=== PATIENT | female | born 1945 | race Caucasian/White ===

== ENCOUNTER → 2016-11-20 | Outpatient (CLI) | payer MEDICARE, OTHER ==
[~2016-11-20] MED LIST: CHOL20002 PO; CLOB15CR19 TP; ECON15CR TP; FOLI0.4T2 PO; FURO-93 PO; LISI-167 PO; METH2.5T PO; MULT-257 PO; NAPR500T3 PO; OMEP-110 PO; ONDA4TAB10 PO; SUCR1ORA11 PO; SUCR1TAB PO; TRAM50TA2 PO; TRIA15OI10 TP
== END | disposition home or self-care (01) ==
LOC: CARD 09:47
PROVIDERS: ATTEND Genetic Counselor, MS
DX: Z01.810 Encounter for preprocedural cardiovascular examination (principal); R06.00 Dyspnea, unspecified; R53.83 Other fatigue; E11.65 Type 2 diabetes mellitus with hyperglycemia
CPT/HCPCS: 93017

== ENCOUNTER 2017-04-29 10:38 | Day surgery (SDC) | payer MEDICARE, OTHER ==
[2017-04-28 13:20] VITALS: BP 130/54
[2017-04-28 13:56] LABS: HEMOGLOBIN 12.7 g/dL (11.7-16.4)
[2017-04-28 14:10] LABS: ASPARTATE AMINO TRANSFERASE 18 U/L (15-37); BLOOD UREA NITROGEN 12 mg/dL (7-18)
[~2017-04-29] VITALS: Ht 160 cm; Wt 86.4 kg
[2017-04-29] MEDS ORDERED: SODIUM CHLORIDE 0.9% 1,000 ML IV SCH ×2 (11:05→12:14)
[2017-04-29] MEDS ORDERED: BISACODYL 10 MG SUPP PR PRN (11:30)
[2017-04-29] MEDS ORDERED: BISACODYL 5 MG EC TABLET PO PRN (11:30)
[2017-04-29] MEDS ORDERED: ASPIRIN 325 MG TABLET EC PO ONE (11:30)
[2017-04-29] MEDS ORDERED: ONDANSETRON 2MG/ML, 2ML IVPush PRN ×2 (11:30→13:30)
[2017-04-29] MEDS ORDERED: ACETAMINOPHEN 325 MG TABLET PO PRN (11:30)
[2017-04-29] MEDS ORDERED: FERR500P8 PO (11:31)
[2017-04-29] MEDS ORDERED: FURO20TA3 PO (11:31)
[2017-04-29] MEDS ORDERED: FLUC50TA3 PO (11:31)
[2017-04-29] MEDS ORDERED: MAGN400T36 PO (11:31)
[2017-04-29] MEDS ORDERED: ASPI-496 PO (11:31)
[2017-04-29] MEDS ORDERED: LORA10TA62 PO (11:31)
[2017-04-29] MEDS ORDERED: MIDAZOLAM 1 MG/ML, 5ML ONE (11:31)
[2017-04-29] MEDS ORDERED: ZINC30TA PO (11:31)
[2017-04-29] MEDS ORDERED: FENTANYL PF 100 MCG/2ML ONE (11:31)
[2017-04-29] MEDS ORDERED: METH2.5T PO (11:31)
[2017-04-29] MEDS ORDERED: GLIP5TAB10 PO (11:31)
[2017-04-29] MEDS ORDERED: VERAPAMIL 2.5 MG/ML, 2ML ONE (11:32)
[2017-04-29] MEDS ORDERED: CHOL100012 PO (11:32)
[2017-04-29] MEDS ORDERED: BIVALIRUDIN 250 MG ONE (11:32)
[2017-04-29] MEDS ORDERED: CALC-525 PO (11:32)
[2017-04-29] MEDS ORDERED: HEPARIN 1,000 UNITS/ML, 10ML ONE (11:32)
[2017-04-29] MEDS ORDERED: LIDOCAINE 2%, 20ML ONE (11:32)
[2017-04-29] MEDS ORDERED: CALC-598 PO (11:32)
[2017-04-29] MEDS ORDERED: [UNRECOGNIZED DRUG - OTHER] PO (11:32)
[2017-04-29] MEDS ORDERED: FOLI0.8C PO (11:32)
[2017-04-29] MEDS ORDERED: NITROGLYCERIN 5 MG/ML, 10ML ONE (11:32)
[2017-04-29] MEDS ORDERED: ASCO250T2 PO (11:32)
[2017-04-29] MEDS ORDERED: TICAGRELOR 90 MG TABLET ONE (11:32)
[2017-04-29] MEDS ORDERED: ONDANSETRON 2MG/ML, 2ML ONE (13:17)
[2017-04-29] MEDS ORDERED: ZOLPIDEM 5MG TABLET PO PRN (21:00)
== END 2017-04-29 14:32 ==
LOC: CACL 10:38
PROVIDERS: ATTEND Internal Medicine Cardiovascular Disease
DX: Z09 Encounter for follow-up examination after completed treatment for conditions other than malignant neoplasm (principal); M06.9 Rheumatoid arthritis, unspecified; Z88.0 Allergy status to penicillin; Z88.1 Allergy status to other antibiotic agents; Z88.6 Allergy status to analgesic agent
CPT/HCPCS: 36415; 71020; 80053; 82962; 85025; 93458; 99156; C1769; C1894; J1644; J2250; J2405; J3010; J3490; Q9967; J0583

== ENCOUNTER 2018-02-10 14:23 | Inpatient (IN) | payer MEDICARE, OTHER ==
[~2018-02-10] VITALS: Ht 160 cm; Wt 91.4 kg
[~2018-02-10 14:23] MED LIST changes: +ASCO250T2 PO; +ASPI-496 PO; +CALC-525 PO; +CALC-598 PO; +CHOL100012 PO; +FERR500P8 PO; +FLUC50TA3 PO; +FOLI0.8C PO; +FURO20TA3 PO; +GLIP5TAB10 PO; +LORA10TA62 PO; +MAGN400T36 PO; +NAPR-685 PO; -NAPR500T3 PO; +ZINC30TA PO; +[UNRECOGNIZED DRUG - OTHER] PO
[2018-02-10] MEDS ORDERED: PLEASE ENTER HEIGHT AND WEIGHT MC SCH (15:00)
[2018-02-10] MEDS ORDERED: PANTOPRAZOLE 40 MG IV ONE (15:03)
[2018-02-10 15:17] LABS: BASOPHILS # (AUTO) 0.04 x10^3/uL (0-0.1); BASOPHILS % (AUTO) 0 % (0-1); EOSINOPHILS # (AUTO) 0.01 x10^3/uL (0-0.4); EOSINOPHILS % (AUTO) 0 % (1-7); LYMPHOCYTES # (AUTO) 1.03 x10^3/uL (1-3.4); LYMPHOCYTES % (AUTO) 9 % (22-44); MD NO; MEAN CORPUSCULAR HEMOGLOBIN 31.1 pg (27.0-34.8); MEAN CORPUSCULAR HGB CONC 33.5 g/dL (32.4-35.8); MEAN CORPUSCULAR VOLUME 92.9 fL (80-100); MEAN PLATELET VOLUME 9.9 fL (7.4-10.4); MONOCYTES # (AUTO) 0.41 x10^3/uL (0.2-0.8); MONOCYTES % (AUTO) 4 % (2-9); NEUTROPHILS # (AUTO) 9.87 x10^3/uL (1.8-6.8); NEUTROPHILS % (AUTO) 87 % (42-75); PLATELET COUNT 336 x10^3/uL (130-400); RED BLOOD COUNT 4.15 x10^6/uL (3.82-5.3); RED CELL DISTRIBUTION WIDTH 14.4 % (9.6-15.2)
[2018-02-10 15:25] LABS: ALANINE AMINOTRANSFERASE 22 U/L (12-78); ALBUMIN 3.1 g/dL (3.4-5.0); ANION GAP 9 mmol/L (5-15); CALCIUM 9.4 mg/dL (8.5-10.1); CHLORIDE 100 mmol/L (98-107); CREATININE 0.91 mg/dL (0.55-1.02)
[2018-02-10 15:28] LABS: ALKALINE PHOSPHATASE 110 U/L (45-117); BILIRUBIN,TOTAL 0.5 mg/dL (0.2-1.0); TOTAL PROTEIN 7.5 g/dL (6.4-8.2)
[2018-02-10] MEDS ORDERED: FERROUS SULFATE (16:04)
[2018-02-10] MEDS ORDERED: LORATADINE (16:05)
[2018-02-10] MEDS ORDERED: CARAFATE (16:05)
[2018-02-10] MEDS ORDERED: MORPHINE SULFATE 4 MG/ML, 1ML IVPush PRN (16:30)
[2018-02-10] MEDS: INSULIN LISPRO 100 UNITS/ML, PEN SQ-INSULIN SCH ×2 (16:30→21:00)
[2018-02-10] MEDS ORDERED: ONDANSETRON ODT 4 MG PO PRN (16:30)
[2018-02-10] MEDS ORDERED: MAALOX/HYOSCYAMINE/LIDOCAINE 45 ML BTL PO PRN (16:30)
[2018-02-10] MEDS ORDERED: ONDANSETRON 2MG/ML, 2ML IVPush ONE (16:30)
[2018-02-10] MEDS ORDERED: ONDANSETRON 2MG/ML, 2ML IVPush PRN (16:30)
[2018-02-10 16:51] LABS: HEMOGLOBIN A1C 5.9 % (4.2-6.3)
[2018-02-10 17:00] LABS: INTERNATIONAL NORMALIZED RATIO 0.97 (0.93-1.1); PROTHROMBIN TIME 10.1 Seconds (9.6-11.5)
[2018-02-10] MEDS ORDERED: PANTOPRAZOLE 40 MG IV IVPush SCH (18:00)
[2018-02-10 18:22] VITALS: BP 128/69
[2018-02-10] MEDS: SODIUM CHLORIDE 0.9% 1,000 ML IV SCH (18:28)
[2018-02-10] MEDS ORDERED: PANTOPRAZOLE 40 MG IV IVPush ONE (18:30)
[2018-02-10] MEDS: SUCRALFATE 1 GM/10 ML UDC PO SCH ×2 (18:37→21:07)
[2018-02-10 19:12] VITALS: BP 109/61
[2018-02-10] MEDS: FUROSEMIDE 20 MG TABLET PO SCH ×2 (21:00→21:07)
[2018-02-10] MEDS: LISINOPRIL 10 MG TABLET PO SCH (21:06)
[2018-02-10] MEDS: FERROUS SULFATE 325 MG TABLET PO SCH (21:06)
[2018-02-10] MEDS: DOCUSATE 100 MG CAPSULE PO SCH (21:06)
[2018-02-10] MEDS: ACETAMINOPHEN 325 MG TABLET PO PRN (21:08)
[2018-02-10 21:21] LABS: MICROSCOPIC INDICATED
[2018-02-10 21:22] LABS: CULTURE INDICATED? YES
[2018-02-11 02:50] VITALS: BP 100/64
[2018-02-11 05:10] LABS: BASOPHILS # (AUTO) 0.05 x10^3/uL (0-0.1); BASOPHILS % (AUTO) 1 % (0-1); EOSINOPHILS # (AUTO) 0.13 x10^3/uL (0-0.4); EOSINOPHILS % (AUTO) 2 % (1-7); LYMPHOCYTES # (AUTO) 2.06 x10^3/uL (1-3.4); LYMPHOCYTES % (AUTO) 25 % (22-44); MD NO; MEAN CORPUSCULAR HEMOGLOBIN 31.3 pg (27.0-34.8); MEAN CORPUSCULAR HGB CONC 33.1 g/dL (32.4-35.8); MEAN CORPUSCULAR VOLUME 94.6 fL (80-100); MEAN PLATELET VOLUME 9.8 fL (7.4-10.4); MONOCYTES % (AUTO) 10 % (2-9); NEUTROPHILS # (AUTO) 5.19 x10^3/uL (1.8-6.8); NEUTROPHILS % (AUTO) 63 % (42-75); PLATELET COUNT 267 x10^3/uL (130-400); RED BLOOD COUNT 3.44 x10^6/uL (3.82-5.3); RED CELL DISTRIBUTION WIDTH 13.7 % (9.6-15.2)
[2018-02-11 05:14] LABS: ANION GAP 7 mmol/L (5-15); CHLORIDE 105 mmol/L (98-107)
[2018-02-11 05:16] LABS: CREATININE 0.83 mg/dL (0.55-1.02)
[2018-02-11] MEDS: PANTOPRAZOLE 40 MG IV IVPush SCH ×3 (05:37→20:23)
[2018-02-11] MEDS: SUCRALFATE 1 GM/10 ML UDC PO SCH ×4 (06:28→20:23)
[2018-02-11] MEDS: FUROSEMIDE 20 MG TABLET PO SCH (06:28)
[2018-02-11] MEDS: SODIUM CHLORIDE 0.9% 1,000 ML IV SCH ×2 (06:28→20:22)
[2018-02-11] MEDS: INSULIN LISPRO 100 UNITS/ML, PEN SQ-INSULIN SCH ×4 (07:00→20:36)
[2018-02-11] MEDS: CALCIUM/VITAMIN D3 250-125 TABLET PO SCH (08:00)
[2018-02-11] MEDS: FOLIC ACID 1 MG TABLET PO SCH (08:00)
[2018-02-11] MEDS: FERROUS SULFATE 325 MG TABLET PO SCH (08:00)
[2018-02-11] MEDS: CHOLECALCIFEROL 1,000 UNIT TABLET PO SCH (08:00)
[2018-02-11] MEDS: DOCUSATE 100 MG CAPSULE PO SCH ×2 (08:00→20:23)
[2018-02-11] MEDS: LORATADINE 10 MG TABLET PO SCH (08:01)
[2018-02-11] MEDS: ZINC SULFATE 220 MG TAB PO SCH (08:01)
[2018-02-11] MEDS: ASCORBIC ACID 500 MG TABLET PO SCH (08:01)
[2018-02-11] MEDS: LISINOPRIL 10 MG TABLET PO SCH (08:01)
[2018-02-11] MEDS: MULTIVITAMIN 1 TABLET PO SCH (08:01)
[2018-02-11 08:13] VITALS: BP 107/58
[2018-02-11] MEDS ORDERED: CEFTRIAXONE PMX 1GM/50ML 50 ML IV SCH (09:00)
[2018-02-11] MEDS ORDERED: PANTOPRAZOLE 40 MG IV IVPush SCH (09:00)
[2018-02-11 14:08] VITALS: BP 92/56
[2018-02-11] MEDS ORDERED: DEXTROSE 50%, 50ML SYRINGE IVPush PRN (15:00)
[2018-02-11] MEDS ORDERED: DEXTROSE 4 GM TAB.CHEW PO PRN (15:00)
[2018-02-11] MEDS ORDERED: GLUCAGON 1 MG IM PRN (15:00)
[2018-02-11] MEDS: IRON SUCROSE COMPLEX 100MG/5ML IV SCH (16:01)
[2018-02-11 19:43] VITALS: BP 112/60
[2018-02-11] MEDS: SODIUM CHLORIDE FLUSH 10ML SYR IVF SCH (20:23)
[2018-02-11] MEDS: METHOTREXATE 2.5 MG TABLET PO SCH (20:25)
[2018-02-12 00:54] VITALS: BP 106/49
[2018-02-12 04:03] LABS: BASOPHILS # (AUTO) 0.03 x10^3/uL (0-0.1); BASOPHILS % (AUTO) 0 % (0-1); EOSINOPHILS # (AUTO) 0.22 x10^3/uL (0-0.4); EOSINOPHILS % (AUTO) 3 % (1-7); LYMPHOCYTES # (AUTO) 1.72 x10^3/uL (1-3.4); LYMPHOCYTES % (AUTO) 21 % (22-44); MD NO; MEAN CORPUSCULAR HEMOGLOBIN 31.5 pg (27.0-34.8); MEAN CORPUSCULAR HGB CONC 33.6 g/dL (32.4-35.8); MEAN CORPUSCULAR VOLUME 93.9 fL (80-100); MEAN PLATELET VOLUME 9.3 fL (7.4-10.4); MONOCYTES # (AUTO) 0.64 x10^3/uL (0.2-0.8); MONOCYTES % (AUTO) 8 % (2-9); NEUTROPHILS # (AUTO) 5.48 x10^3/uL (1.8-6.8); NEUTROPHILS % (AUTO) 68 % (42-75); PLATELET COUNT 266 x10^3/uL (130-400); RED BLOOD COUNT 3.21 x10^6/uL (3.82-5.3)
[2018-02-12 04:10] LABS: ANION GAP 6 mmol/L (5-15); CALCIUM 7.9 mg/dL (8.5-10.1); CHLORIDE 109 mmol/L (98-107)
[2018-02-12 04:11] LABS: CREATININE 0.73 mg/dL (0.55-1.02)
[2018-02-12 06:35] VITALS: BP 111/62
[2018-02-12] MEDS: INSULIN LISPRO 100 UNITS/ML, PEN SQ-INSULIN SCH ×4 (07:00→20:38)
[2018-02-12] MEDS: SUCRALFATE 1 GM/10 ML UDC PO SCH ×4 (07:00→20:29)
[2018-02-12] MEDS: CEFTRIAXONE 1,000 MG in SODIUM CHLORIDE 0.9% 50 ML IV SCH (08:43)
[2018-02-12] MEDS: SODIUM CHLORIDE FLUSH 10ML SYR IVF SCH ×2 (08:44→20:29)
[2018-02-12] MEDS: PANTOPRAZOLE 40 MG IV IVPush SCH ×2 (08:44→20:29)
[2018-02-12] MEDS: IRON SUCROSE COMPLEX 100MG/5ML IV SCH (08:44)
[2018-02-12] MEDS: MAGNESIUM OXIDE 400 MG TABLET PO SCH (08:45)
[2018-02-12] MEDS: FOLIC ACID 1 MG TABLET PO SCH (08:45)
[2018-02-12] MEDS: MULTIVITAMIN 1 TABLET PO SCH (08:45)
[2018-02-12] MEDS: DOCUSATE 100 MG CAPSULE PO SCH ×2 (08:45→20:31)
[2018-02-12] MEDS: LORATADINE 10 MG TABLET PO SCH (08:45)
[2018-02-12] MEDS: ZINC SULFATE 220 MG TAB PO SCH (08:46)
[2018-02-12] MEDS: ASCORBIC ACID 500 MG TABLET PO SCH (08:46)
[2018-02-12] MEDS: CHOLECALCIFEROL 1,000 UNIT TABLET PO SCH (08:46)
[2018-02-12] MEDS: CALCIUM/VITAMIN D3 250-125 TABLET PO SCH (08:46)
[2018-02-12] MEDS: METHOTREXATE 2.5 MG TABLET PO SCH (08:48)
[2018-02-12] MEDS: SODIUM CHLORIDE 0.9% 1,000 ML IV SCH (08:49)
[2018-02-12] MEDS ORDERED: [UNRECOGNIZED DRUG - REMARK] MC SCH (10:30)
[2018-02-12 14:00] VITALS: BP 128/61
[2018-02-12] MEDS: ACETAMINOPHEN 325 MG TABLET PO PRN (18:03)
[2018-02-12 19:45] VITALS: BP 116/57
[2018-02-13] MEDS: ACETAMINOPHEN 325 MG TABLET PO PRN ×2 (02:48→08:51)
[2018-02-13 02:59] VITALS: BP 128/58
[2018-02-13 06:09] LABS: ANION GAP 9 mmol/L (5-15); CALCIUM 8.1 mg/dL (8.5-10.1); CHLORIDE 111 mmol/L (98-107); CREATININE 0.63 mg/dL (0.55-1.02)
[2018-02-13 06:19] LABS: BASOPHILS # (AUTO) 0.14 x10^3/uL (0-0.1); BASOPHILS % (AUTO) 2 % (0-1); EOSINOPHILS # (AUTO) 0.44 x10^3/uL (0-0.4); EOSINOPHILS % (AUTO) 7 % (1-7); LYMPHOCYTES # (AUTO) 1.33 x10^3/uL (1-3.4); LYMPHOCYTES % (AUTO) 21 % (22-44); MD NO; MEAN CORPUSCULAR HEMOGLOBIN 31.2 pg (27.0-34.8); MEAN CORPUSCULAR VOLUME 94.6 fL (80-100); MEAN PLATELET VOLUME 9.7 fL (7.4-10.4); MONOCYTES # (AUTO) 0.55 x10^3/uL (0.2-0.8); MONOCYTES % (AUTO) 9 % (2-9); NEUTROPHILS # (AUTO) 3.83 x10^3/uL (1.8-6.8); NEUTROPHILS % (AUTO) 61 % (42-75); PLATELET COUNT 274 x10^3/uL (130-400); RED BLOOD COUNT 3.26 x10^6/uL (3.82-5.3); RED CELL DISTRIBUTION WIDTH 13.8 % (9.6-15.2)
[2018-02-13] MEDS: INSULIN LISPRO 100 UNITS/ML, PEN SQ-INSULIN SCH ×4 (07:00→20:38)
[2018-02-13 07:06] VITALS: BP 118/67
[2018-02-13] MEDS: SUCRALFATE 1 GM/10 ML UDC PO SCH ×4 (08:48→20:45)
[2018-02-13] MEDS: PANTOPRAZOLE 40 MG IV IVPush SCH ×2 (08:48→20:45)
[2018-02-13] MEDS: IRON SUCROSE COMPLEX 100MG/5ML IV SCH (08:48)
[2018-02-13] MEDS: CALCIUM/VITAMIN D3 250-125 TABLET PO SCH (08:51)
[2018-02-13] MEDS: ZINC SULFATE 220 MG TAB PO SCH (08:51)
[2018-02-13] MEDS: ASCORBIC ACID 500 MG TABLET PO SCH (08:52)
[2018-02-13] MEDS: LORATADINE 10 MG TABLET PO SCH (08:52)
[2018-02-13] MEDS: DOCUSATE 100 MG CAPSULE PO SCH ×2 (08:52→20:46)
[2018-02-13] MEDS: MAGNESIUM OXIDE 400 MG TABLET PO SCH (08:52)
[2018-02-13] MEDS: SODIUM CHLORIDE FLUSH 10ML SYR IVF SCH ×2 (08:53→20:46)
[2018-02-13] MEDS: MULTIVITAMIN 1 TABLET PO SCH (08:53)
[2018-02-13] MEDS: FOLIC ACID 1 MG TABLET PO SCH (08:53)
[2018-02-13] MEDS: CHOLECALCIFEROL 1,000 UNIT TABLET PO SCH (08:53)
[2018-02-13] MEDS: CEFTRIAXONE 1,000 MG in SODIUM CHLORIDE 0.9% 50 ML IV SCH (09:33)
[2018-02-13 14:24] VITALS: BP 135/73
[2018-02-13 19:15] VITALS: BP 120/63
[2018-02-14 00:49] VITALS: BP 105/63
[2018-02-14 05:14] LABS: BASOPHILS # (AUTO) 0.08 x10^3/uL (0-0.1); BASOPHILS % (AUTO) 1 % (0-1); EOSINOPHILS # (AUTO) 0.43 x10^3/uL (0-0.4); EOSINOPHILS % (AUTO) 7 % (1-7); LYMPHOCYTES # (AUTO) 1.59 x10^3/uL (1-3.4); LYMPHOCYTES % (AUTO) 25 % (22-44); MD NO; MEAN CORPUSCULAR HEMOGLOBIN 30.7 pg (27.0-34.8); MEAN CORPUSCULAR HGB CONC 32.7 g/dL (32.4-35.8); MEAN CORPUSCULAR VOLUME 93.8 fL (80-100); MEAN PLATELET VOLUME 9.5 fL (7.4-10.4); MONOCYTES # (AUTO) 0.53 x10^3/uL (0.2-0.8); MONOCYTES % (AUTO) 8 % (2-9); NEUTROPHILS # (AUTO) 3.72 x10^3/uL (1.8-6.8); NEUTROPHILS % (AUTO) 59 % (42-75); PLATELET COUNT 311 x10^3/uL (130-400); RED BLOOD COUNT 3.54 x10^6/uL (3.82-5.3); RED CELL DISTRIBUTION WIDTH 13.9 % (9.6-15.2)
[2018-02-14 05:20] LABS: ALBUMIN 2.2 g/dL (3.4-5.0); ANION GAP 7 mmol/L (5-15); CALCIUM 8.5 mg/dL (8.5-10.1); CHLORIDE 108 mmol/L (98-107)
[2018-02-14 05:24] LABS: ALANINE AMINOTRANSFERASE 14 U/L (12-78); ALKALINE PHOSPHATASE 85 U/L (45-117); BILIRUBIN,TOTAL 0.4 mg/dL (0.2-1.0); CREATININE 0.67 mg/dL (0.55-1.02); TOTAL PROTEIN 5.9 g/dL (6.4-8.2)
[2018-02-14] MEDS: INSULIN LISPRO 100 UNITS/ML, PEN SQ-INSULIN SCH (07:00)
[2018-02-14 07:30] VITALS: BP 125/69
[2018-02-14] MEDS: SUCRALFATE 1 GM/10 ML UDC PO SCH (07:45)
[2018-02-14] MEDS: ACETAMINOPHEN 325 MG TABLET PO PRN (07:46)
[2018-02-14] MEDS ORDERED: ONDA4TAB13 PO (08:30)
[2018-02-14] MEDS ORDERED: SUCR1ORA5 PO (08:30)
[2018-02-14] MEDS ORDERED: METH2.5T PO (08:30)
[2018-02-14] MEDS ORDERED: Maalox/Hyoscyamine/Lidocaine PO (08:30)
[2018-02-14] MEDS ORDERED: ACET325T14 PO (08:31)
[2018-02-14] MEDS: DOCUSATE 100 MG CAPSULE PO SCH (09:00)
[2018-02-14] MEDS: MAGNESIUM OXIDE 400 MG TABLET PO SCH (09:00)
[2018-02-14] MEDS: FOLIC ACID 1 MG TABLET PO SCH (09:00)
[2018-02-14] MEDS: SODIUM CHLORIDE FLUSH 10ML SYR IVF SCH (09:00)
[2018-02-14] MEDS: PANTOPRAZOLE 40 MG IV IVPush SCH (09:39)
[2018-02-14] MEDS: LORATADINE 10 MG TABLET PO SCH (09:39)
[2018-02-14] MEDS: CEFTRIAXONE 1,000 MG in SODIUM CHLORIDE 0.9% 50 ML IV SCH (09:39)
[2018-02-14] MEDS: CHOLECALCIFEROL 1,000 UNIT TABLET PO SCH (09:40)
[2018-02-14] MEDS: ZINC SULFATE 220 MG TAB PO SCH (09:40)
[2018-02-14] MEDS: CALCIUM/VITAMIN D3 250-125 TABLET PO SCH (09:40)
[2018-02-14] MEDS: MULTIVITAMIN 1 TABLET PO SCH (09:40)
[2018-02-14] MEDS: ASCORBIC ACID 500 MG TABLET PO SCH (09:41)
[2018-02-14] MEDS ORDERED: TRAM50TA2 PO (16:02)
[2018-02-15] MEDS ORDERED: METHOTREXATE 2.5 MG TABLET HOMEMEDPO SCH (21:00)
[2018-02-18] MEDS ORDERED: METHOTREXATE 2.5 MG TABLET HOMEMEDPO SCH (12:30)
== END 2018-02-14 13:33 | disposition home or self-care (01) | DRG 377 ==
LOC: ED 15:49 → EDIP 15:50 → 3NE 18:11
PROVIDERS: ADMIT Internal Medicine; ATTEND Internal Medicine
DX: K29.61 Other gastritis with bleeding (principal); E43 Unspecified severe protein-calorie malnutrition; G93.41 Metabolic encephalopathy; E87.1 Hypo-osmolality and hyponatremia; N39.0 Urinary tract infection, site not specified; M84.464A Pathological fracture, left fibula, initial encounter for fracture; D50.9 Iron deficiency anemia, unspecified; M25.472 Effusion, left ankle; M25.572 Pain in left ankle and joints of left foot; M06.9 Rheumatoid arthritis, unspecified; R79.89 Other specified abnormal findings of blood chemistry; Z68.35 Body mass index [BMI] 35.0-35.9, adult; B95.1 Streptococcus, group B, as the cause of diseases classified elsewhere; E86.0 Dehydration; E11.9 Type 2 diabetes mellitus without complications; I10 Essential (primary) hypertension; J30.9 Allergic rhinitis, unspecified; K59.00 Constipation, unspecified; T39.395A Adverse effect of other nonsteroidal anti-inflammatory drugs [NSAID], initial encounter; Z83.3 Family history of diabetes mellitus; Z87.11 Personal history of peptic ulcer disease; Z88.0 Allergy status to penicillin; Z91.19 Patient's noncompliance with other medical treatment and regimen; Z98.84 Bariatric surgery status
CPT/HCPCS: 36415; 80048; 80053; 81001; 82728; 82962; 83036; 83540; 83550; 83690; 84466; 85014; 85018; 85025; 85610; 85730; 86850; 86900; 87077; 87086; 87147; 87181; 93005; 96374; J0696; J1756; J2405; J8610; C9113; J7030

== ENCOUNTER 2018-02-17 16:02 | Emergency (ER) | payer MEDICARE, OTHER ==
[~2018-02-17] VITALS: Ht 160 cm; Wt 85.9 kg
[~2018-02-17 16:02] MED LIST changes: +ACET325T14 PO; +CARAFATE; +FERROUS SULFATE; +LORATADINE; +Maalox/Hyoscyamine/Lidocaine PO; +ONDA4TAB13 PO; +SUCR1ORA5 PO
[2018-02-17] MEDS ORDERED: FAMOTIDINE 20 MG/2 ML IVP ONE (16:30)
[2018-02-17] MEDS ORDERED: ONDANSETRON 2MG/ML, 2ML IVPush ONE (16:30)
[2018-02-17] MEDS ORDERED: SODIUM CHLORIDE 0.9% 1,000ML IVBOLUS ONE (16:30)
[2018-02-17] MEDS ORDERED: SODIUM CHLORIDE FLUSH 10ML SYR IVF ONE (16:30)
[2018-02-17] MEDS ORDERED: ZINC100T PO (16:43)
[2018-02-17] MEDS ORDERED: FURO20TA3 PO (16:43)
[2018-02-17 16:56] LABS: ALANINE AMINOTRANSFERASE 31 U/L (12-78); ANION GAP 9 mmol/L (5-15); CHLORIDE 107 mmol/L (98-107); CREATININE 0.84 mg/dL (0.55-1.02)
[2018-02-17 16:57] LABS: BASOPHILS # (AUTO) 0.04 x10^3/uL (0-0.1); BASOPHILS % (AUTO) 0 % (0-1); EOSINOPHILS # (AUTO) 0.08 x10^3/uL (0-0.4); EOSINOPHILS % (AUTO) 1 % (1-7); LYMPHOCYTES # (AUTO) 1.22 x10^3/uL (1-3.4); LYMPHOCYTES % (AUTO) 12 % (22-44); MD NO; MEAN CORPUSCULAR HEMOGLOBIN 31.1 pg (27.0-34.8); MEAN CORPUSCULAR HGB CONC 33.2 g/dL (32.4-35.8); MEAN CORPUSCULAR VOLUME 93.7 fL (80-100); MONOCYTES # (AUTO) 0.47 x10^3/uL (0.2-0.8); MONOCYTES % (AUTO) 5 % (2-9); NEUTROPHILS # (AUTO) 8.51 x10^3/uL (1.8-6.8); NEUTROPHILS % (AUTO) 83 % (42-75); PLATELET COUNT 388 x10^3/uL (130-400); RED BLOOD COUNT 3.92 x10^6/uL (3.82-5.3); RED CELL DISTRIBUTION WIDTH 14.4 % (9.6-15.2)
[2018-02-17] MEDS ORDERED: ONDANSETRON 2MG/ML, 2ML ONE (16:57)
[2018-02-17] MEDS ORDERED: FAMOTIDINE 20 MG/2 ML ONE (16:57)
[2018-02-17 16:58] LABS: ALKALINE PHOSPHATASE 105 U/L (45-117); BILIRUBIN,TOTAL 0.5 mg/dL (0.2-1.0)
[2018-02-17] MEDS ORDERED: OMNIPAQUE 350 MG/ML, 100ML BOTTLE ONE (18:31)
[2018-02-17 19:07] LABS: CULTURE INDICATED? YES; MICROSCOPIC INDICATED
[2018-02-17 20:22] VITALS: BP 125/58
== END 2018-02-17 20:24 | disposition home or self-care (01) ==
LOC: ED 20:18
DX: R11.2 Nausea with vomiting, unspecified (principal); R10.13 Epigastric pain; E11.9 Type 2 diabetes mellitus without complications; I10 Essential (primary) hypertension
CPT/HCPCS: 36415; 74177; 80053; 81001; 83690; 85025; 87086; 96361; 96374; 96375; 99285; J2405; J7030; Q9967; S0028

== ENCOUNTER 2018-02-25 11:06 | Inpatient (IN) | payer MEDICARE, OTHER ==
[~2018-02-25] VITALS: Ht 160 cm; Wt 86.6 kg
[~2018-02-25 11:06] MED LIST changes: +ZINC100T PO
[2018-02-25] MEDS ORDERED: ONDANSETRON 2MG/ML, 2ML IVPush ONE (12:00)
[2018-02-25 12:28] LABS: BASOPHILS # (AUTO) 0.08 x10^3/uL (0-0.1); BASOPHILS % (AUTO) 1 % (0-1); EOSINOPHILS # (AUTO) 0.01 x10^3/uL (0-0.4); EOSINOPHILS % (AUTO) 0 % (1-7); LYMPHOCYTES # (AUTO) 1.38 x10^3/uL (1-3.4); LYMPHOCYTES % (AUTO) 11 % (22-44); MD NO; MEAN CORPUSCULAR HEMOGLOBIN 30.8 pg (27.0-34.8); MEAN CORPUSCULAR HGB CONC 33.5 g/dL (32.4-35.8); MEAN CORPUSCULAR VOLUME 91.8 fL (80-100); MEAN PLATELET VOLUME 8.8 fL (7.4-10.4); MONOCYTES % (AUTO) 7 % (2-9); NEUTROPHILS # (AUTO) 9.94 x10^3/uL (1.8-6.8); NEUTROPHILS % (AUTO) 81 % (42-75); PLATELET COUNT 390 x10^3/uL (130-400); RED BLOOD COUNT 3.72 x10^6/uL (3.82-5.3); RED CELL DISTRIBUTION WIDTH 14.3 % (9.6-15.2)
[2018-02-25] MEDS ORDERED: HYDROmorphone 2 MG/ML, 1ML ONE (12:33)
[2018-02-25] MEDS ORDERED: ONDANSETRON 2MG/ML, 2ML ONE (12:33)
[2018-02-25 12:40] LABS: ALANINE AMINOTRANSFERASE 15 U/L (12-78); ALBUMIN 2.6 g/dL (3.4-5.0); ANION GAP 7 mmol/L (5-15); CHLORIDE 98 mmol/L (98-107); CREATININE 0.77 mg/dL (0.55-1.02)
[2018-02-25] MEDS: HYDROmorphone 2 MG/ML, 1ML IVPush PRN ×2 (12:40→12:55)
[2018-02-25 12:43] LABS: CULTURE INDICATED? YES; MICROSCOPIC INDICATED
[2018-02-25 12:43] LABS: ALKALINE PHOSPHATASE 96 U/L (45-117); BILIRUBIN,TOTAL 0.3 mg/dL (0.2-1.0); TOTAL PROTEIN 7.4 g/dL (6.4-8.2)
[2018-02-25] MEDS ORDERED: POLYETHYLENE GLYCOL 17 GM PACKET PO PRN (14:30)
[2018-02-25] MEDS ORDERED: HYOSCYAMINE PO PRN (14:30)
[2018-02-25] MEDS ORDERED: hydrALAzine 20 MG/ML, 1ML IVPush PRN (14:30)
[2018-02-25] MEDS ORDERED: DOCUSATE 100 MG CAPSULE PO PRN (14:30)
[2018-02-25] MEDS ORDERED: LIDOCAINE PO PRN (14:30)
[2018-02-25] MEDS ORDERED: ACETAMINOPHEN 325 MG TABLET PO PRN ×2 (14:30)
[2018-02-25] MEDS ORDERED: MAALOX PO PRN (14:30)
[2018-02-25] MEDS ORDERED: BISACODYL 10 MG SUPP PR PRN (14:30)
[2018-02-25] MEDS ORDERED: FLUCONAZOLE 50 MG PO PRN (14:30)
[2018-02-25] MEDS: NS + 20MEQ KCL 1,000 ML IV SCH (15:50)
[2018-02-25 15:58] VITALS: BP 122/71
[2018-02-25] MEDS: SUCRALFATE 1 GM TABLET PO SCH ×2 (16:00→21:00)
[2018-02-25 19:57] VITALS: BP 129/80
[2018-02-25] MEDS: FUROSEMIDE 20 MG TABLET PO SCH (21:00)
[2018-02-25] MEDS: LISINOPRIL 10 MG TABLET PO SCH (21:00)
[2018-02-25] MEDS: FERROUS SULFATE 325 MG TABLET PO SCH (21:00)
[2018-02-25] MEDS: OMEPRAZOLE 20 MG CAPSULE.DR PO SCH (21:00)
[2018-02-26 01:12] VITALS: BP 129/74
[2018-02-26] MEDS: NS + 20MEQ KCL 1,000 ML IV SCH (04:41)
[2018-02-26 05:54] LABS: CHLORIDE 103 mmol/L (98-107)
[2018-02-26 05:56] LABS: MEAN CORPUSCULAR HEMOGLOBIN 30.3 pg (27.0-34.8); MEAN CORPUSCULAR HGB CONC 32.7 g/dL (32.4-35.8); MEAN CORPUSCULAR VOLUME 92.8 fL (80-100); MEAN PLATELET VOLUME 9.1 fL (7.4-10.4); PLATELET COUNT 323 x10^3/uL (130-400); RED BLOOD COUNT 3.49 x10^6/uL (3.82-5.3); RED CELL DISTRIBUTION WIDTH 14.3 % (9.6-15.2)
[2018-02-26 06:02] LABS: ALANINE AMINOTRANSFERASE 44 U/L (12-78); ALBUMIN 2.2 g/dL (3.4-5.0); ALKALINE PHOSPHATASE 219 U/L (45-117); ANION GAP 5 mmol/L (5-15); BILIRUBIN,TOTAL 0.6 mg/dL (0.2-1.0); CALCIUM 8.4 mg/dL (8.5-10.1); CREATININE 0.56 mg/dL (0.55-1.02); TOTAL PROTEIN 6.4 g/dL (6.4-8.2)
[2018-02-26 06:17] LABS: BASOPHILS # (AUTO) 0.08 x10^3/uL (0-0.1); BASOPHILS % (AUTO) 1 % (0-1); EOSINOPHILS # (AUTO) 0.21 x10^3/uL (0-0.4); EOSINOPHILS % (AUTO) 2 % (1-7); LYMPHOCYTES % (AUTO) 17 % (22-44); MD SCAN; MONOCYTES # (AUTO) 0.65 x10^3/uL (0.2-0.8); MONOCYTES % (AUTO) 8 % (2-9); NEUTROPHILS # (AUTO) 6.23 x10^3/uL (1.8-6.8); NEUTROPHILS % (AUTO) 72 % (42-75)
[2018-02-26] MEDS: SUCRALFATE 1 GM TABLET PO SCH ×4 (07:00→21:42)
[2018-02-26 07:32] VITALS: BP 112/61
[2018-02-26] MEDS ORDERED: FENTANYL PF 100 MCG/2ML ONE (08:51)
[2018-02-26] MEDS ORDERED: MIDAZOLAM 1 MG/ML, 5ML ONE (08:52)
[2018-02-26] MEDS ORDERED: ZINC GLUCONATE 30 MG PO SCH (09:00)
[2018-02-26] MEDS: FUROSEMIDE 20 MG TABLET PO SCH ×2 (09:00→21:42)
[2018-02-26] MEDS ORDERED: LORATADINE 10 MG PO SCH (09:00)
[2018-02-26] MEDS: MAGNESIUM OXIDE 400 MG TABLET PO SCH (11:33)
[2018-02-26] MEDS: CALCIUM/VITAMIN D3 250-125 TABLET PO SCH (11:34)
[2018-02-26] MEDS: FERROUS SULFATE 325 MG TABLET PO SCH ×2 (11:35→21:42)
[2018-02-26] MEDS: ASCORBIC ACID 500 MG TABLET PO SCH (11:36)
[2018-02-26] MEDS: OMEPRAZOLE 20 MG CAPSULE.DR PO SCH ×2 (11:37→21:42)
[2018-02-26] MEDS: LISINOPRIL 10 MG TABLET PO SCH ×2 (11:38→21:42)
[2018-02-26] MEDS: FOLIC ACID 1 MG TABLET PO SCH (11:39)
[2018-02-26 12:30] VITALS: BP 136/85
[2018-02-26] MEDS: ONDANSETRON 2MG/ML, 2ML IVPush PRN (18:27)
[2018-02-26 18:49] VITALS: BP 98/61
[2018-02-26] MEDS: METHOTREXATE 2.5 MG TABLET PO SCH (21:43)
[2018-02-27 02:48] VITALS: BP 103/66
[2018-02-27 05:13] LABS: BASOPHILS # (AUTO) 0.05 x10^3/uL (0-0.1); BASOPHILS % (AUTO) 1 % (0-1); EOSINOPHILS # (AUTO) 0.15 x10^3/uL (0-0.4); EOSINOPHILS % (AUTO) 2 % (1-7); LYMPHOCYTES # (AUTO) 1.58 x10^3/uL (1-3.4); LYMPHOCYTES % (AUTO) 17 % (22-44); MD NO; MEAN CORPUSCULAR HEMOGLOBIN 29.8 pg (27.0-34.8); MEAN CORPUSCULAR HGB CONC 32.6 g/dL (32.4-35.8); MEAN CORPUSCULAR VOLUME 91.4 fL (80-100); MONOCYTES # (AUTO) 0.75 x10^3/uL (0.2-0.8); MONOCYTES % (AUTO) 8 % (2-9); NEUTROPHILS % (AUTO) 73 % (42-75); PLATELET COUNT 318 x10^3/uL (130-400); RED BLOOD COUNT 3.14 x10^6/uL (3.82-5.3); RED CELL DISTRIBUTION WIDTH 14.3 % (9.6-15.2)
[2018-02-27 05:25] LABS: ANION GAP 4 mmol/L (5-15); CALCIUM 8.3 mg/dL (8.5-10.1); CHLORIDE 103 mmol/L (98-107)
[2018-02-27 05:26] LABS: CREATININE 0.65 mg/dL (0.55-1.02)
[2018-02-27] MEDS ORDERED: MAGNESIUM CITRATE 300ML ORAL SOL PO ONE (08:30)
[2018-02-27] MEDS ORDERED: PINK LADY ENEMA 490 ML BOTTLE PR ONE (08:30)
[2018-02-27] MEDS ORDERED: MAALOX/HYOSCYAMINE/LIDOCAINE 45 ML BTL PO ONE (09:00)
[2018-02-27 09:24] VITALS: BP 106/66
[2018-02-27] MEDS: CALCIUM/VITAMIN D3 250-125 TABLET PO SCH (10:56)
[2018-02-27] MEDS: FOLIC ACID 1 MG TABLET PO SCH (10:56)
[2018-02-27] MEDS: FERROUS SULFATE 325 MG TABLET PO SCH ×2 (10:57→21:17)
[2018-02-27] MEDS: OMEPRAZOLE 20 MG CAPSULE.DR PO SCH ×2 (10:57→21:16)
[2018-02-27] MEDS: MAGNESIUM OXIDE 400 MG TABLET PO SCH (10:57)
[2018-02-27] MEDS: SUCRALFATE 1 GM TABLET PO SCH ×4 (10:58→21:17)
[2018-02-27] MEDS: ASCORBIC ACID 500 MG TABLET PO SCH (10:58)
[2018-02-27] MEDS: LISINOPRIL 10 MG TABLET PO SCH ×2 (10:58→21:16)
[2018-02-27] MEDS: FUROSEMIDE 20 MG TABLET PO SCH ×2 (10:59→21:19)
[2018-02-27] MEDS: METHOTREXATE 2.5 MG TABLET PO SCH (11:48)
[2018-02-27] MEDS: HYDROcodone/APAP 5/325 TABLET PO PRN (13:09)
[2018-02-27] MEDS: ONDANSETRON 2MG/ML, 2ML IVPush PRN (13:09)
[2018-02-27 13:29] VITALS: BP 100/53
[2018-02-27 19:34] VITALS: BP 97/60
[2018-02-28 02:04] VITALS: BP 94/40
[2018-02-28 05:26] LABS: ANION GAP 6 mmol/L (5-15); CALCIUM 8.5 mg/dL (8.5-10.1); CHLORIDE 100 mmol/L (98-107); CREATININE 0.74 mg/dL (0.55-1.02)
[2018-02-28 05:51] LABS: BASOPHILS # (AUTO) 0.01 x10^3/uL (0-0.1); BASOPHILS % (AUTO) 0 % (0-1); EOSINOPHILS % (AUTO) 3 % (1-7); LYMPHOCYTES # (AUTO) 0.87 x10^3/uL (1-3.4); LYMPHOCYTES % (AUTO) 11 % (22-44); MD NO; MEAN CORPUSCULAR HEMOGLOBIN 30.3 pg (27.0-34.8); MEAN CORPUSCULAR HGB CONC 32.9 g/dL (32.4-35.8); MEAN CORPUSCULAR VOLUME 92.2 fL (80-100); MEAN PLATELET VOLUME 9.3 fL (7.4-10.4); MONOCYTES # (AUTO) 0.36 x10^3/uL (0.2-0.8); MONOCYTES % (AUTO) 5 % (2-9); NEUTROPHILS # (AUTO) 6.27 x10^3/uL (1.8-6.8); NEUTROPHILS % (AUTO) 81 % (42-75); PLATELET COUNT 340 x10^3/uL (130-400); RED BLOOD COUNT 3.34 x10^6/uL (3.82-5.3); RED CELL DISTRIBUTION WIDTH 14.4 % (9.6-15.2)
[2018-02-28 07:02] VITALS: BP 104/65
[2018-02-28] MEDS: SUCRALFATE 1 GM TABLET PO SCH (07:07)
[2018-02-28] MEDS: HYDROcodone/APAP 5/325 TABLET PO PRN (07:07)
[2018-02-28] MEDS ORDERED: OMEP-110 PO (08:23)
[2018-02-28] MEDS ORDERED: SUCR1ORA5 PO (08:23)
[2018-02-28] MEDS: METHOTREXATE 2.5 MG TABLET PO SCH (09:35)
[2018-02-28] MEDS: ASCORBIC ACID 500 MG TABLET PO SCH (09:36)
[2018-02-28] MEDS: CALCIUM/VITAMIN D3 250-125 TABLET PO SCH (09:37)
[2018-02-28] MEDS: FOLIC ACID 1 MG TABLET PO SCH (09:37)
[2018-02-28] MEDS: FERROUS SULFATE 325 MG TABLET PO SCH (09:37)
[2018-02-28] MEDS: LISINOPRIL 10 MG TABLET PO SCH (09:37)
[2018-02-28] MEDS: FUROSEMIDE 20 MG TABLET PO SCH (09:37)
[2018-02-28] MEDS: OMEPRAZOLE 20 MG CAPSULE.DR PO SCH (09:37)
[2018-02-28] MEDS: MAGNESIUM OXIDE 400 MG TABLET PO SCH (09:37)
== END 2018-02-28 10:28 | disposition home or self-care (01) | DRG 384 ==
LOC: ED 13:51 → EDIP 13:52 → UNDOADMIN 14:28 → EDIP 14:28 → 3NE 15:15
PROVIDERS: ADMIT Internal Medicine; ATTEND Internal Medicine
PROC: 0DB98ZX Excision of Duodenum, Via Natural or Artificial Opening Endoscopic, Diagnostic (ICD-10-PCS; principal; 2018-02-26 10:00)
DX: K26.9 Duodenal ulcer, unspecified as acute or chronic, without hemorrhage or perforation (principal); E44.0 Moderate protein-calorie malnutrition; R65.10 Systemic inflammatory response syndrome (SIRS) of non-infectious origin without acute organ dysfunction; D64.9 Anemia, unspecified; E11.65 Type 2 diabetes mellitus with hyperglycemia; I11.9 Hypertensive heart disease without heart failure; K59.00 Constipation, unspecified; E11.649 Type 2 diabetes mellitus with hypoglycemia without coma; E86.0 Dehydration; M06.9 Rheumatoid arthritis, unspecified; E66.01 Morbid (severe) obesity due to excess calories; Z66 Do not resuscitate; Z82.3 Family history of stroke; Z82.49 Family history of ischemic heart disease and other diseases of the circulatory system; Z83.3 Family history of diabetes mellitus; Z68.33 Body mass index [BMI] 33.0-33.9, adult; Z79.84 Long term (current) use of oral hypoglycemic drugs; Z90.49 Acquired absence of other specified parts of digestive tract; Z90.710 Acquired absence of both cervix and uterus; Z87.11 Personal history of peptic ulcer disease; Z98.84 Bariatric surgery status
CPT/HCPCS: 36415; 74018; 80048; 80053; 81001; 82962; 83690; 85025; 87086; 88305; 88341; 88342; 96374; 96375; 99152; 99153; J1170; J2250; J2405; J3010; J3480; J8610; G0461

== ENCOUNTER 2018-10-05 10:01 | Emergency (ER) | payer MEDICARE, OTHER ==
[~2018-10-05] VITALS: Ht 160 cm; Wt 80.0 kg
--- NOTE | 2018-10-05 11:00 | NUR ---
RECEIVED REPORT FROM APARNA GARZA, ASSUMING CARE OF PT
[2018-10-05] MEDS ORDERED: MORPHINE SULFATE 4 MG/ML, 1ML ONE ×2 (11:02→13:11)
[2018-10-05] MEDS: MORPHINE SULFATE 4 MG/ML, 1ML IVPush PRN ×2 (11:10→13:15)
--- NOTE | 2018-10-05 11:11 | NUR ---
PT MEDICATED FOR PAIN WITH MORPHINE PER MAR. TAKEN TO RAD
--- NOTE | 2018-10-05 11:52 | NUR ---
Isabelle ([facility]) - multiple delays, starting IV, waiting for meds checked 3 times
--- NOTE | 2018-10-05 12:04 | NUR ---
ADDITIONAL ORDERS RECEIVED AT THIS TIME FOR CT.
[2018-10-05 12:30] VITALS: BP 122/73
--- NOTE | 2018-10-05 12:30 | NUR ---
TAKEN FOR CT
--- NOTE | 2018-10-05 13:15 | NUR ---
MD AT BEDSIDE TO UPDATE PT ON POC
--- NOTE | 2018-10-05 13:15 | NUR ---
ALL RESULTS BACK AT THIS TIME, CHART UP FOR RECHECK. SECOND DOSE MORPHINE GIVEN FOR PAIN.
--- NOTE | 2018-10-05 13:37 | NUR ---
IMMOBILIZER BEING PLACED BY TECH, THEN PT TO BE DCd HOME
== END 2018-10-05 13:54 | disposition home or self-care (01) ==
LOC: ED 10:41
DX: S42.291A Other displaced fracture of upper end of right humerus, initial encounter for closed fracture (principal); S09.8XXA Other specified injuries of head, initial encounter; I10 Essential (primary) hypertension; E11.9 Type 2 diabetes mellitus without complications; M19.90 Unspecified osteoarthritis, unspecified site; W01.0XXA Fall on same level from slipping, tripping and stumbling without subsequent striking against object, initial encounter; Y93.01 Activity, walking, marching and hiking; Y92.009 Unspecified place in unspecified non-institutional (private) residence as the place of occurrence of the external cause; Y99.8 Other external cause status
CPT/HCPCS: 96374; 96376

== ENCOUNTER 2019-02-23 10:49 | Outpatient (CLI) | payer MEDICARE, OTHER ==
[2019-02-23] MEDS ORDERED: CHOL100012 PO (11:39)
[2019-02-23] MEDS ORDERED: CALC-534 PO (11:39)
[2019-02-23] MEDS ORDERED: POWER C PO (11:39)
[2019-02-23] MEDS ORDERED: SUCR1TAB PO (11:39)
[2019-02-23] MEDS ORDERED: PANT40TA5 PO (11:39)
[2019-02-23] MEDS ORDERED: METH2.5T PO (11:39)
[2019-02-23] MEDS ORDERED: POTA99TA2 PO (11:39)
[2019-02-23] MEDS ORDERED: CALC1TAB4 PO (11:39)
[2019-02-23 12:34] LABS: INTERNATIONAL NORMALIZED RATIO 0.92 (0.93-1.1); PROTHROMBIN TIME 9.7 Seconds (9.6-11.5)
[2019-02-23 12:35] LABS: ALBUMIN 3.1 g/dL (3.4-5.0); ANION GAP 6 mmol/L (5-15); CALCIUM 8.6 mg/dL (8.5-10.1); CHLORIDE 110 mmol/L (98-107)
[2019-02-23 12:36] LABS: BASOPHILS # (AUTO) 0.03 x10^3/uL (0-0.1); BASOPHILS % (AUTO) 1 % (0-1); EOSINOPHILS # (AUTO) 0.23 x10^3/uL (0-0.4); EOSINOPHILS % (AUTO) 4 % (1-7); LYMPHOCYTES # (AUTO) 1.99 x10^3/uL (1-3.4); LYMPHOCYTES % (AUTO) 33 % (22-44); MD NO; MEAN CORPUSCULAR HEMOGLOBIN 30.8 pg (27.0-34.8); MEAN CORPUSCULAR HGB CONC 32.4 g/dL (32.4-35.8); MEAN PLATELET VOLUME 9.5 fL (7.4-10.4); MONOCYTES # (AUTO) 0.36 x10^3/uL (0.2-0.8); MONOCYTES % (AUTO) 6 % (2-9); NEUTROPHILS # (AUTO) 3.37 x10^3/uL (1.8-6.8); NEUTROPHILS % (AUTO) 56 % (42-75); PLATELET COUNT 253 x10^3/uL (130-400); RED BLOOD COUNT 3.92 x10^6/uL (3.82-5.3); RED CELL DISTRIBUTION WIDTH 16.3 % (9.6-15.2)
[2019-02-23 12:40] LABS: ALANINE AMINOTRANSFERASE 21 U/L (12-78); ALKALINE PHOSPHATASE 102 U/L (45-117); BILIRUBIN,TOTAL 0.4 mg/dL (0.2-1.0); CREATININE 0.85 mg/dL (0.55-1.02); TOTAL PROTEIN 6.6 g/dL (6.4-8.2)
== END 2019-02-23 23:59 | disposition home or self-care (01) ==
LOC: STAR 10:49
PROVIDERS: ATTEND Orthopaedic Surgery
DX: Z01.818 Encounter for other preprocedural examination (principal); M19.011 Primary osteoarthritis, right shoulder; S42.291A Other displaced fracture of upper end of right humerus, initial encounter for closed fracture; X58.XXXA Exposure to other specified factors, initial encounter; Y93.89 Activity, other specified; Y92.89 Other specified places as the place of occurrence of the external cause; Y99.8 Other external cause status; R94.31 Abnormal electrocardiogram [ECG] [EKG]
CPT/HCPCS: 36415; 80053; 85025; 85610; 85730; 87081; 87147; 93005

== ENCOUNTER 2019-07-04 07:34 | Inpatient (IN) | payer MEDICARE, OTHER ==
[~2019-07-04] VITALS: Ht 162.6 cm; Wt 96.1 kg
[~2019-07-04 07:34] MED LIST changes: +CALC-534 PO; +CALC1TAB4 PO; -ECON15CR TP; +ECON15CR11 TP; +PANT40TA5 PO; +POTA99TA2 PO; +POWER C PO
[2019-07-04] MEDS ORDERED: ONDANSETRON 2MG/ML, 2ML ONE ×2 (07:41→15:16)
[2019-07-04] MEDS ORDERED: MORPHINE SULFATE 4 MG/ML, 1ML ONE ×2 (07:41→09:31)
[2019-07-04] MEDS ORDERED: FAMOTIDINE 20 MG/2 ML ONE (07:42)
[2019-07-04 08:25] LABS: BASOPHILS % (AUTO) 1 % (0-1); EOSINOPHILS # (AUTO) 0.04 x10^3/uL (0-0.4); EOSINOPHILS % (AUTO) 0 % (1-7); LYMPHOCYTES # (AUTO) 1.51 x10^3/uL (1-3.4); LYMPHOCYTES % (AUTO) 15 % (22-44); MD NO; MEAN CORPUSCULAR HEMOGLOBIN 29.7 pg (27.0-34.8); MEAN CORPUSCULAR HGB CONC 32.1 g/dL (32.4-35.8); MEAN CORPUSCULAR VOLUME 92.7 fL (80-100); MEAN PLATELET VOLUME 8.9 fL (7.4-10.4); MONOCYTES # (AUTO) 0.51 x10^3/uL (0.2-0.8); MONOCYTES % (AUTO) 5 % (2-9); NEUTROPHILS # (AUTO) 8.25 x10^3/uL (1.8-6.8); NEUTROPHILS % (AUTO) 79 % (42-75); PLATELET COUNT 299 x10^3/uL (130-400); RED BLOOD COUNT 4.51 x10^6/uL (3.82-5.3); RED CELL DISTRIBUTION WIDTH 16.4 % (9.6-15.2)
[2019-07-04] MEDS: MORPHINE SULFATE 4 MG/ML, 1ML IVPush PRN ×2 (08:30→09:43)
[2019-07-04 08:35] LABS: ALBUMIN 3.1 g/dL (3.4-5.0); ANION GAP 4 mmol/L (5-15); CALCIUM 8.6 mg/dL (8.5-10.1); CHLORIDE 105 mmol/L (98-107)
[2019-07-04 08:41] LABS: ALANINE AMINOTRANSFERASE 15 U/L (12-78); ALKALINE PHOSPHATASE 84 U/L (45-117); BILIRUBIN,TOTAL 0.9 mg/dL (0.2-1.0); TOTAL PROTEIN 7.1 g/dL (6.4-8.2); TROPONIN I < 0.015 ng/mL (0.000-0.045)
--- NOTE | 2019-07-04 09:00 | NUR ---
pt is resting on an e.r. gurney while awaiting the results of diagnostic testing. her pain is being managed via the mar. i will monitor and treat as ordered, as well as prn.
[2019-07-04] MEDS ORDERED: FAMOTIDINE 20 MG/2 ML IV ONE (09:30)
[2019-07-04] MEDS ORDERED: ONDANSETRON 2MG/ML, 2ML IVPush ONE (09:30)
--- NOTE | 2019-07-04 09:43 | NUR ---
TASK RN: PT MEDICATED PER EMAR. PT RESTING ON GURNEY. MODERATE DISTRESS NOTED. PT C/O ABDOMINAL PAIN SINCE SHE WOKE UP THIS AM. NO OTHER NEEDS REQUESTED AT THIS TIME.
--- NOTE | 2019-07-04 09:51 | NUR ---
pt to ct with tech
--- NOTE | 2019-07-04 10:22 | NUR ---
pt sleeping sonorously on an e.r. gurney. she is aware of the necesity of a urinalysis. i will continue to monitor and treat as ordered, as well as prn while awaiting the results of other diagnostics.
--- NOTE | 2019-07-04 10:59 | NUR ---
HOSPITALIST IS AT THE BEDSIDE FOR CONSULT
[2019-07-04] MEDS ORDERED: MEROPENEM 1 GM in SODIUM CHLORIDE 0.9% 100 ML IV ONE ×2 (11:00→19:00)
[2019-07-04] MEDS ORDERED: SODIUM CHLORIDE 0.9% 1,000ML IVBOLUS ONE (11:00)
[2019-07-04] MEDS ORDERED: hydrALAzine 20 MG/ML, 1ML IVPush PRN (11:30)
[2019-07-04] MEDS ORDERED: IBUPROFEN 600 MG TABLET PO PRN (11:30)
[2019-07-04] MEDS ORDERED: POLYETHYLENE GLYCOL 17 GM PACKET PO PRN (11:30)
[2019-07-04] MEDS ORDERED: ASA/APAP/ CAFFEINE TABLET PO PRN (11:30)
[2019-07-04] MEDS ORDERED: CYCLOBENZAPRINE 10 MG TABLET PO PRN (11:30)
[2019-07-04] MEDS ORDERED: ACETAMINOPHEN 325 MG TABLET PO PRN (11:30)
--- NOTE | 2019-07-04 11:57 | NUR ---
VERBAL SBAR REPORT EXCHANGED Jacek VIDES (RN) AT THE BEDSIDE. SHE IS ASSUMING CREA OF THIS PT AT THIS TIME.
--- NOTE | 2019-07-04 11:58 | NUR ---
REPORT RECEIVED FROM HARRY GARZA.
--- NOTE | 2019-07-04 12:23 | NUR ---
PT USED BEDSIDE COMMODE AT THIS TIME. PT PROVIDED URINE SAMPLE AND UA SENT.
[2019-07-04 12:51] LABS: CULTURE INDICATED? YES; MICROSCOPIC INDICATED
[2019-07-04] MEDS ORDERED: OMNIPAQUE 350 MG/ML, 100ML BOTTLE ONE (13:01)
--- NOTE | 2019-07-04 13:06 | NUR ---
REPORT GIVEN TO JASMYNE GARZA AT PRE OP. ALL QUESTIONS ANSWERED.
--- NOTE | 2019-07-04 13:23 | NUR ---
NS STILL INFUSING AT THIS TIME. PT'S AOX4. RESPS EVEN AND UNLABORED.
[2019-07-04] MEDS ORDERED: EPINEPHRINE 1 MG/ML, 1ML ONE (14:38)
[2019-07-04] MEDS ORDERED: BUPIVACAINE/PF 0.5% ONE (14:38)
[2019-07-04] MEDS ORDERED: MIDAZOLAM 1 MG/ML, 2ML ONE (14:52)
[2019-07-04] MEDS ORDERED: FENTANYL PF 250 MCG/5ML ONE (14:52)
[2019-07-04] MEDS ORDERED: CEFOTETAN 2 GM ONE (15:16)
[2019-07-04] MEDS ORDERED: PHENYLEPHRINE 10 MG/ML ONE (15:16)
[2019-07-04] MEDS ORDERED: SUCCINYLCHOLINE 20 MG/ML, 10ML ONE (15:16)
[2019-07-04] MEDS ORDERED: ROCURONIUM 10MG/ML,5ML ONE (15:16)
[2019-07-04] MEDS ORDERED: PROPOFOL 10 MG/ML, 20ML ONE (15:16)
[2019-07-04] MEDS ORDERED: EPHEDRINE 50 MG/ML, 1ML ONE (15:16)
[2019-07-04] MEDS ORDERED: INSULIN LISPRO 100 UNITS/ML, PEN SQ-INSULIN SCH (16:00)
[2019-07-04] MEDS ORDERED: ONDANSETRON 2MG/ML, 2ML IVPush PRN (16:30)
[2019-07-04] MEDS ORDERED: FENTANYL PF 100 MCG/2ML IV PRN (16:30)
[2019-07-04] MEDS ORDERED: HYDROmorphone 1 MG/ML, 1ML INJ IV PRN (16:30)
[2019-07-04] MEDS ORDERED: MEPERIDINE/PF 25MG/0.5ML IVPush PRN (16:30)
[2019-07-04] MEDS ORDERED: LABETALOL 5MG/ML, 20ML IV PRN (16:30)
[2019-07-04] MEDS ORDERED: hydrALAzine 20 MG/ML, 1ML IV PRN (16:30)
[2019-07-04] MEDS ORDERED: OXYcodone 5 MG/5 ML ORAL.SOL UDC PO PRN (16:30)
[2019-07-04] MEDS ORDERED: KETOROLAC 30 MG/1 ML IV PRN (16:30)
[2019-07-04] MEDS ORDERED: PROMETHAZINE 25 MG/ML, 1ML IV PRN (16:30)
[2019-07-04] MEDS ORDERED: ALBUTEROL SULFATE 2.5 MG/3 ML NPPB PRN (16:30)
[2019-07-04] MEDS ORDERED: NOREPINEPHRINE 4 MG in SODIUM CHLORIDE 0.9% 246 ML IV PRN ×2 (17:25→17:30)
[2019-07-04] MEDS ORDERED: FENTANYL PF 100 MCG/2ML IVPush PRN (17:30)
[2019-07-04] MEDS ORDERED: LIDOCAINE-MPF 1%, 2ML ENDO PRN (17:30)
[2019-07-04] MEDS ORDERED: BISACODYL 10 MG SUPP PR PRN (17:30)
[2019-07-04] MEDS ORDERED: DEXTROSE 50%, 50ML SYRINGE IVPush PRN (17:30)
[2019-07-04] MEDS ORDERED: LACTULOSE 20 GM/30 ML UDC NG PRN (17:30)
[2019-07-04] MEDS ORDERED: GLUCAGON 1 MG IM PRN (17:30)
[2019-07-04] MEDS ORDERED: PHARMACY MAY ADJ FOR RENAL FX MC SCH (17:30)
[2019-07-04] MEDS ORDERED: DEXTROSE 4 GM TAB.CHEW PO PRN (17:30)
[2019-07-04] MEDS ORDERED: SENNA 176 MG/5 ML ORAL SOL NG PRN (17:30)
[2019-07-04] MEDS ORDERED: SENNA/DOCUSATE TABLET NG PRN (17:30)
[2019-07-04] MEDS ORDERED: POTASSIUM CHLORIDE 20 MEQ in LACTATED RINGERS 1,000 ML IV SCH (18:00)
[2019-07-04 18:04] LABS: PROTHROMBIN TIME 10.5 Seconds (9.6-11.5)
[2019-07-04 18:18] LABS: TROPONIN I 0.195 ng/mL (0.000-0.045)
[2019-07-04 18:21] LABS: ANION GAP 9 mmol/L (5-15); CALCIUM 7.3 mg/dL (8.5-10.1); CHLORIDE 109 mmol/L (98-107); CREATININE 1.44 mg/dL (0.55-1.02); TRIGLYCERIDES 45 mg/dL (50-200)
[2019-07-04 18:40] LABS: MD YES; MEAN CORPUSCULAR HEMOGLOBIN 30.2 pg (27.0-34.8); MEAN CORPUSCULAR HGB CONC 31.9 g/dL (32.4-35.8); MEAN CORPUSCULAR VOLUME 94.6 fL (80-100); MEAN PLATELET VOLUME 9.3 fL (7.4-10.4); PLATELET COUNT 233 x10^3/uL (130-400); RED BLOOD COUNT 4.05 x10^6/uL (3.82-5.3); RED CELL DISTRIBUTION WIDTH 16.5 % (9.6-15.2)
[2019-07-04] MEDS: PROPOFOL 100 ML IV PRN (18:45)
[2019-07-04] MEDS: ALBUTEROL SULFATE 2.5 MG/3 ML INLINE SCH ×2 (18:59→22:09)
[2019-07-04 19:13] LABS: BANDS%(MANUAL) 31 % (0-7); LYMPH#(MANUAL) 0.13 x10^3/uL (1-3.4); LYMPHS% (MANUAL) 1 % (22-44); MONOS#(MANUAL) 0.26 x10^3/uL (0.3-2.7); MONOS% (MANUAL) 2 % (2-9); SEG#(MANUAL) 8.51 x10^3/uL (1.8-6.8); SEGS% (MANUAL) 66 % (42-75)
[2019-07-04 19:14] LABS: ANISOCYTOSIS 1+
[2019-07-04 19:15] LABS: <PLATELET ESTIMATE> ADEQUATE; <PLT MORPHOLOGY> NORMAL PLT MORPH
[2019-07-04] MEDS: SODIUM CHLORIDE FLUSH 10ML SYR IVF SCH (21:11)
[2019-07-04] MEDS: HYDROmorphone 2 MG/ML, 1ML IVPush PRN (21:14)
[2019-07-04] MEDS: ENOXAPARIN 40 MG/0.4 ML SQ SCH (21:46)
[2019-07-04] MEDS: INSULIN LISPRO 100 UNITS/ML, PEN SQ-INSULIN SCH (21:51)
[2019-07-04] MEDS ORDERED: ALBUMIN HUMAN 25% 100 ML IV ONE ×2 (22:00→23:00)
[2019-07-04 23:50] LABS: TROPONIN I 0.167 ng/mL (0.000-0.045)
[2019-07-05] MEDS ORDERED: SODIUM CHLORIDE 0.9% 1,000ML IVBOLUS ONE (01:00)
[2019-07-05] MEDS: ALBUTEROL SULFATE 2.5 MG/3 ML INLINE SCH ×6 (02:06→23:00)
[2019-07-05 04:00] VITALS: BP 138/66
[2019-07-05] MEDS: INSULIN LISPRO 100 UNITS/ML, PEN SQ-INSULIN SCH ×4 (04:29→20:52)
[2019-07-05] MEDS: PROPOFOL 100 ML IV PRN ×2 (04:35→20:41)
[2019-07-05 04:54] LABS: BASOPHILS % (AUTO) 0 % (0-1); EOSINOPHILS # (AUTO) 0.01 x10^3/uL (0-0.4); EOSINOPHILS % (AUTO) 0 % (1-7); LYMPHOCYTES # (AUTO) 0.72 x10^3/uL (1-3.4); LYMPHOCYTES % (AUTO) 5 % (22-44); MD SCAN; MEAN CORPUSCULAR HEMOGLOBIN 30.6 pg (27.0-34.8); MEAN CORPUSCULAR HGB CONC 32.3 g/dL (32.4-35.8); MEAN CORPUSCULAR VOLUME 94.6 fL (80-100); MEAN PLATELET VOLUME 9.4 fL (7.4-10.4); MONOCYTES # (AUTO) 0.62 x10^3/uL (0.2-0.8); MONOCYTES % (AUTO) 4 % (2-9); NEUTROPHILS # (AUTO) 14.41 x10^3/uL (1.8-6.8); NEUTROPHILS % (AUTO) 91 % (42-75); PLATELET COUNT 209 x10^3/uL (130-400); RED BLOOD COUNT 3.43 x10^6/uL (3.82-5.3); RED CELL DISTRIBUTION WIDTH 16.2 % (9.6-15.2)
[2019-07-05 05:16] LABS: ANION GAP 7 mmol/L (5-15); CALCIUM 6.8 mg/dL (8.5-10.1); CHLORIDE 111 mmol/L (98-107)
[2019-07-05] MEDS: SODIUM CHLORIDE 0.9% 1,000 ML IV SCH ×2 (07:31→20:42)
[2019-07-05] MEDS: FLUCONAZOLE 200 MG/100 ML 100 ML IV SCH (07:31)
[2019-07-05] MEDS: PANTOPRAZOLE 40 MG IV IVPush SCH (07:33)
[2019-07-05] MEDS: SODIUM CHLORIDE FLUSH 10ML SYR IVF SCH ×2 (07:33→20:41)
[2019-07-05] MEDS: HYDROmorphone 2 MG/ML, 1ML IVPush PRN ×3 (09:16→23:15)
[2019-07-05] MEDS: MEROPENEM 1 GM in SODIUM CHLORIDE 0.9% 100 ML IV SCH ×2 (09:22→17:19)
[2019-07-05] MEDS: ENOXAPARIN 40 MG/0.4 ML SQ SCH (20:40)
[2019-07-06] MEDS: MEROPENEM 1 GM in SODIUM CHLORIDE 0.9% 100 ML IV SCH ×3 (01:15→17:18)
[2019-07-06] MEDS: PROPOFOL 100 ML IV PRN (01:52)
[2019-07-06] MEDS: ALBUTEROL SULFATE 2.5 MG/3 ML INLINE SCH ×3 (02:40→05:30)
[2019-07-06] MEDS: INSULIN LISPRO 100 UNITS/ML, PEN SQ-INSULIN SCH ×4 (03:00→21:00)
[2019-07-06 04:00] VITALS: BP 118/59
[2019-07-06 04:12] LABS: MEAN CORPUSCULAR HEMOGLOBIN 30.5 pg (27.0-34.8); MEAN CORPUSCULAR HGB CONC 32.4 g/dL (32.4-35.8); MEAN PLATELET VOLUME 9.8 fL (7.4-10.4); PLATELET COUNT 203 x10^3/uL (130-400); RED BLOOD COUNT 3.37 x10^6/uL (3.82-5.3); RED CELL DISTRIBUTION WIDTH 16.7 % (9.6-15.2)
[2019-07-06 05:00] LABS: MD YES
[2019-07-06 05:06] LABS: <PLATELET ESTIMATE> ADEQUATE; <PLT MORPHOLOGY> NORMAL PLT MORPH; ANISOCYTOSIS 1+; BAND#(MANUAL) 0.96 x10^3/uL; BANDS%(MANUAL) 6 % (0-7); LYMPH#(MANUAL) 0.64 x10^3/uL (1-3.4); LYMPHS% (MANUAL) 4 % (22-44); MONOS#(MANUAL) 0.32 x10^3/uL (0.3-2.7); MONOS% (MANUAL) 2 % (2-9); SEG#(MANUAL) 14.08 x10^3/uL (1.8-6.8); SEGS% (MANUAL) 88 % (42-75)
[2019-07-06 05:26] LABS: ANION GAP 8 mmol/L (5-15); CALCIUM 6.4 mg/dL (8.5-10.1); CHLORIDE 115 mmol/L (98-107)
[2019-07-06 05:28] LABS: CREATININE 0.72 mg/dL (0.55-1.02)
[2019-07-06] MEDS ORDERED: MAGNESIUM SULFATE PMX 2GM/50ML 50 ML IV ONE (06:30)
[2019-07-06] MEDS: FLUCONAZOLE 200 MG/100 ML 100 ML IV SCH (07:31)
[2019-07-06] MEDS: SODIUM CHLORIDE FLUSH 10ML SYR IVF SCH ×2 (07:35→21:35)
[2019-07-06] MEDS: HYDROmorphone 2 MG/ML, 1ML IVPush PRN ×2 (07:41→11:41)
[2019-07-06] MEDS: PANTOPRAZOLE 40 MG IV IVPush SCH (07:44)
[2019-07-06] MEDS: SODIUM CHLORIDE 0.45% 1,000 ML IV SCH ×2 (10:04→23:45)
[2019-07-06] MEDS ORDERED: ONDANSETRON 2MG/ML, 2ML IVPush PRN (16:30)
[2019-07-06] MEDS: ENOXAPARIN 40 MG/0.4 ML SQ SCH (21:36)
[2019-07-07] MEDS: MEROPENEM 1 GM in SODIUM CHLORIDE 0.9% 100 ML IV SCH ×3 (01:38→16:54)
[2019-07-07] MEDS: INSULIN LISPRO 100 UNITS/ML, PEN SQ-INSULIN SCH ×4 (03:00→21:00)
[2019-07-07 04:00] VITALS: BP 118/62
[2019-07-07 04:24] LABS: MEAN CORPUSCULAR HEMOGLOBIN 30.2 pg (27.0-34.8); MEAN CORPUSCULAR HGB CONC 32.2 g/dL (32.4-35.8); MEAN CORPUSCULAR VOLUME 93.7 fL (80-100); MEAN PLATELET VOLUME 9.6 fL (7.4-10.4); PLATELET COUNT 220 x10^3/uL (130-400); RED BLOOD COUNT 3.33 x10^6/uL (3.82-5.3); RED CELL DISTRIBUTION WIDTH 16.7 % (9.6-15.2)
[2019-07-07 05:39] LABS: BASOPHILS # (AUTO) 0.05 x10^3/uL (0-0.1); BASOPHILS % (AUTO) 0 % (0-1); EOSINOPHILS # (AUTO) 0.09 x10^3/uL (0-0.4); EOSINOPHILS % (AUTO) 1 % (1-7); LYMPHOCYTES # (AUTO) 0.72 x10^3/uL (1-3.4); LYMPHOCYTES % (AUTO) 5 % (22-44); MD SCAN; MONOCYTES # (AUTO) 0.62 x10^3/uL (0.2-0.8); MONOCYTES % (AUTO) 4 % (2-9); NEUTROPHILS # (AUTO) 14.58 x10^3/uL (1.8-6.8); NEUTROPHILS % (AUTO) 91 % (42-75)
[2019-07-07 06:32] LABS: ANION GAP 7 mmol/L (5-15); CALCIUM 6.6 mg/dL (8.5-10.1); CHLORIDE 115 mmol/L (98-107); CREATININE 0.59 mg/dL (0.55-1.02)
[2019-07-07] MEDS: PANTOPRAZOLE 40 MG IV IVPush SCH (08:04)
[2019-07-07] MEDS: SODIUM CHLORIDE FLUSH 10ML SYR IVF SCH ×2 (08:04→20:54)
[2019-07-07] MEDS: FLUCONAZOLE 200 MG/100 ML 100 ML IV SCH (08:04)
[2019-07-07] MEDS ORDERED: CALCIUM GLUCONATE 4.6 MEQ in SODIUM CHLORIDE 0.9% 50 ML IV ONE (08:30)
[2019-07-07 10:44] VITALS: BP 133/81
[2019-07-07] MEDS: HYDROmorphone 2 MG/ML, 1ML IVPush PRN (13:27)
[2019-07-07 13:49] VITALS: BP 124/78
[2019-07-07] MEDS ORDERED: OMNIPAQUE 350 MG/ML, 150 ML BOTTLE ONE (19:11)
[2019-07-07] MEDS: ENOXAPARIN 40 MG/0.4 ML SQ SCH (20:54)
[2019-07-08 00:39] VITALS: BP 147/78
[2019-07-08] MEDS: MEROPENEM 1 GM in SODIUM CHLORIDE 0.9% 100 ML IV SCH ×3 (01:20→20:40)
[2019-07-08] MEDS: INSULIN LISPRO 100 UNITS/ML, PEN SQ-INSULIN SCH ×4 (03:00→20:49)
[2019-07-08 05:33] LABS: BASOPHILS # (AUTO) 0.01 x10^3/uL (0-0.1); BASOPHILS % (AUTO) 0 % (0-1); EOSINOPHILS # (AUTO) 0.02 x10^3/uL (0-0.4); EOSINOPHILS % (AUTO) 0 % (1-7); LYMPHOCYTES # (AUTO) 0.86 x10^3/uL (1-3.4); LYMPHOCYTES % (AUTO) 6 % (22-44); MD NO; MEAN CORPUSCULAR HGB CONC 31.9 g/dL (32.4-35.8); MEAN CORPUSCULAR VOLUME 94.1 fL (80-100); MEAN PLATELET VOLUME 9.6 fL (7.4-10.4); MONOCYTES # (AUTO) 0.28 x10^3/uL (0.2-0.8); MONOCYTES % (AUTO) 2 % (2-9); NEUTROPHILS # (AUTO) 13.68 x10^3/uL (1.8-6.8); NEUTROPHILS % (AUTO) 92 % (42-75); PLATELET COUNT 252 x10^3/uL (130-400); RED BLOOD COUNT 3.68 x10^6/uL (3.82-5.3); RED CELL DISTRIBUTION WIDTH 16.7 % (9.6-15.2)
[2019-07-08 06:50] VITALS: BP 139/79
[2019-07-08] MEDS: FLUCONAZOLE 200 MG/100 ML 100 ML IV SCH (06:52)
[2019-07-08 08:31] LABS: CLOSTRIDIUM DIFFICILE ANTIGEN NEGATIVE; CLOSTRIDIUM DIFFICILE TOXIN NEGATIVE (Negative)
[2019-07-08] MEDS: PANTOPRAZOLE 40 MG IV IVPush SCH (08:32)
[2019-07-08] MEDS: SODIUM CHLORIDE FLUSH 10ML SYR IVF SCH ×2 (09:00→20:40)
[2019-07-08 13:21] VITALS: BP 139/80
[2019-07-08] MEDS ORDERED: METHOTREXATE 2.5 MG TABLET PO SCH (14:00)
[2019-07-08 19:20] VITALS: BP 134/80
[2019-07-08] MEDS: ENOXAPARIN 40 MG/0.4 ML SQ SCH (20:41)
[2019-07-08] MEDS: LISINOPRIL 10 MG TABLET PO SCH (20:41)
[2019-07-08] MEDS: FERROUS SULFATE 325 MG TABLET PO SCH (20:41)
[2019-07-09] MEDS: INSULIN LISPRO 100 UNITS/ML, PEN SQ-INSULIN SCH ×4 (03:00→21:00)
[2019-07-09] MEDS: FLUCONAZOLE 200 MG/100 ML 100 ML IV SCH (06:14)
[2019-07-09 06:57] VITALS: BP 122/76
[2019-07-09] MEDS: PANTOPRAZOLE 40 MG IV IVPush SCH (07:30)
[2019-07-09] MEDS: SODIUM CHLORIDE FLUSH 10ML SYR IVF SCH ×2 (09:00→21:00)
[2019-07-09] MEDS: FERROUS SULFATE 325 MG TABLET PO SCH ×2 (09:11→21:41)
[2019-07-09] MEDS: CHOLECALCIFEROL 1,000 UNIT TABLET PO SCH (09:11)
[2019-07-09] MEDS: APIXABAN 5 MG TABLET PO SCH ×2 (09:11→21:41)
[2019-07-09] MEDS: LISINOPRIL 10 MG TABLET PO SCH ×2 (09:13→21:40)
[2019-07-09] MEDS: CALCIUM CARBONATE 500 MG TAB.CHEW PO SCH ×2 (10:00→21:40)
[2019-07-09] MEDS: MEROPENEM 1 GM in SODIUM CHLORIDE 0.9% 100 ML IV SCH ×2 (10:25→21:20)
[2019-07-09 13:02] VITALS: BP 123/76
[2019-07-09 18:49] VITALS: BP 133/72
[2019-07-10 02:38] VITALS: BP 131/78
[2019-07-10] MEDS: INSULIN LISPRO 100 UNITS/ML, PEN SQ-INSULIN SCH ×4 (03:00→20:33)
[2019-07-10 04:07] LABS: BASOPHILS # (AUTO) 0.03 x10^3/uL (0-0.1); BASOPHILS % (AUTO) 0 % (0-1); EOSINOPHILS # (AUTO) 0.23 x10^3/uL (0-0.4); EOSINOPHILS % (AUTO) 3 % (1-7); LYMPHOCYTES # (AUTO) 1.33 x10^3/uL (1-3.4); LYMPHOCYTES % (AUTO) 15 % (22-44); MD NO; MEAN CORPUSCULAR HEMOGLOBIN 29.8 pg (27.0-34.8); MEAN CORPUSCULAR HGB CONC 32.3 g/dL (32.4-35.8); MEAN CORPUSCULAR VOLUME 92.4 fL (80-100); MEAN PLATELET VOLUME 9.1 fL (7.4-10.4); MONOCYTES # (AUTO) 0.08 x10^3/uL (0.2-0.8); MONOCYTES % (AUTO) 1 % (2-9); NEUTROPHILS # (AUTO) 7.33 x10^3/uL (1.8-6.8); NEUTROPHILS % (AUTO) 81 % (42-75); PLATELET COUNT 295 x10^3/uL (130-400); RED BLOOD COUNT 3.75 x10^6/uL (3.82-5.3); RED CELL DISTRIBUTION WIDTH 17.2 % (9.6-15.2)
[2019-07-10 04:19] LABS: ANION GAP 5 mmol/L (5-15); CALCIUM 7.5 mg/dL (8.5-10.1); CHLORIDE 116 mmol/L (98-107); CREATININE 0.54 mg/dL (0.55-1.02)
[2019-07-10] MEDS: FLUCONAZOLE 200 MG/100 ML 100 ML IV SCH (06:44)
[2019-07-10] MEDS: PANTOPRAZOLE 40 MG IV IVPush SCH (06:47)
[2019-07-10] MEDS ORDERED: ENOXAPARIN 40 MG/0.4 ML SQ SCH (07:00)
[2019-07-10] MEDS: ENOXAPARIN 40 MG/0.4 ML SQ SCH (07:19)
[2019-07-10 07:21] VITALS: BP 146/75
[2019-07-10] MEDS: CALCIUM CARBONATE 500 MG TAB.CHEW PO SCH ×2 (08:43→21:04)
[2019-07-10] MEDS: FERROUS SULFATE 325 MG TABLET PO SCH ×2 (08:43→21:04)
[2019-07-10] MEDS: CHOLECALCIFEROL 1,000 UNIT TABLET PO SCH (08:43)
[2019-07-10] MEDS: LISINOPRIL 10 MG TABLET PO SCH ×2 (08:43→21:04)
[2019-07-10] MEDS: SODIUM CHLORIDE FLUSH 10ML SYR IVF SCH ×2 (08:46→21:00)
[2019-07-10] MEDS: D5%-0.45% NACL 1,000 ML IV SCH (08:46)
[2019-07-10] MEDS: MEROPENEM 1 GM in SODIUM CHLORIDE 0.9% 100 ML IV SCH ×2 (08:46→21:05)
[2019-07-10] MEDS ORDERED: LOPERAMIDE 2 MG CAPSULE PO PRN (10:30)
[2019-07-10 12:46] VITALS: BP 137/77
[2019-07-10 19:04] VITALS: BP 129/79
[2019-07-11 02:01] VITALS: BP 135/79
[2019-07-11] MEDS: INSULIN LISPRO 100 UNITS/ML, PEN SQ-INSULIN SCH ×4 (03:00→21:00)
[2019-07-11] MEDS: D5%-0.45% NACL 1,000 ML IV SCH (04:44)
[2019-07-11] MEDS: ENOXAPARIN 40 MG/0.4 ML SQ SCH (06:44)
[2019-07-11] MEDS: PANTOPRAZOLE 40 MG IV IVPush SCH (06:44)
[2019-07-11] MEDS: FLUCONAZOLE 200 MG/100 ML 100 ML IV SCH (06:44)
[2019-07-11 07:18] VITALS: BP 146/72
[2019-07-11] MEDS: CHOLECALCIFEROL 1,000 UNIT TABLET PO SCH (08:28)
[2019-07-11] MEDS: CALCIUM CARBONATE 500 MG TAB.CHEW PO SCH ×2 (08:28→21:07)
[2019-07-11] MEDS: MEROPENEM 1 GM in SODIUM CHLORIDE 0.9% 100 ML IV SCH ×2 (08:28→21:06)
[2019-07-11] MEDS: LISINOPRIL 10 MG TABLET PO SCH ×2 (08:29→21:07)
[2019-07-11] MEDS: SODIUM CHLORIDE FLUSH 10ML SYR IVF SCH ×2 (08:29→21:07)
[2019-07-11] MEDS: FERROUS SULFATE 325 MG TABLET PO SCH ×2 (08:29→21:07)
[2019-07-11] MEDS: SIMETHICONE 125 MG CHEW TAB PO SCH ×3 (11:38→21:07)
[2019-07-11 13:25] VITALS: BP 138/79
[2019-07-11 20:16] VITALS: BP 146/77
[2019-07-11] MEDS: TRAZODONE 50MG TABLET PO PRN (21:07)
[2019-07-12 02:40] VITALS: BP 121/74
[2019-07-12] MEDS: INSULIN LISPRO 100 UNITS/ML, PEN SQ-INSULIN SCH ×4 (03:00→20:29)
[2019-07-12 05:34] LABS: ALANINE AMINOTRANSFERASE 18 U/L (12-78); ALBUMIN 1.6 g/dL (3.4-5.0); ANION GAP 4 mmol/L (5-15); CALCIUM 7.7 mg/dL (8.5-10.1); CHLORIDE 111 mmol/L (98-107); CREATININE 0.48 mg/dL (0.55-1.02)
[2019-07-12 05:37] LABS: ALKALINE PHOSPHATASE 63 U/L (45-117); BILIRUBIN,TOTAL 1.5 mg/dL (0.2-1.0); TOTAL PROTEIN 5.3 g/dL (6.4-8.2)
[2019-07-12 05:38] LABS: BASOPHILS # (AUTO) 0.03 x10^3/uL (0-0.1); BASOPHILS % (AUTO) 1 % (0-1); EOSINOPHILS # (AUTO) 0.32 x10^3/uL (0-0.4); EOSINOPHILS % (AUTO) 5 % (1-7); LYMPHOCYTES # (AUTO) 1.14 x10^3/uL (1-3.4); LYMPHOCYTES % (AUTO) 17 % (22-44); MD NO; MEAN CORPUSCULAR HEMOGLOBIN 29.9 pg (27.0-34.8); MEAN CORPUSCULAR HGB CONC 33.1 g/dL (32.4-35.8); MEAN CORPUSCULAR VOLUME 90.5 fL (80-100); MEAN PLATELET VOLUME 9.1 fL (7.4-10.4); MONOCYTES # (AUTO) 0.17 x10^3/uL (0.2-0.8); MONOCYTES % (AUTO) 3 % (2-9); NEUTROPHILS # (AUTO) 5.25 x10^3/uL (1.8-6.8); NEUTROPHILS % (AUTO) 76 % (42-75); PLATELET COUNT 332 x10^3/uL (130-400); RED BLOOD COUNT 3.03 x10^6/uL (3.82-5.3); RED CELL DISTRIBUTION WIDTH 16.4 % (9.6-15.2)
[2019-07-12] MEDS: ENOXAPARIN 40 MG/0.4 ML SQ SCH (06:24)
[2019-07-12] MEDS: SIMETHICONE 125 MG CHEW TAB PO SCH ×4 (06:25→20:28)
[2019-07-12] MEDS: FLUCONAZOLE 200 MG/100 ML 100 ML IV SCH (06:26)
[2019-07-12 07:35] VITALS: BP 137/69
[2019-07-12] MEDS: CHOLECALCIFEROL 1,000 UNIT TABLET PO SCH (08:08)
[2019-07-12] MEDS: FERROUS SULFATE 325 MG TABLET PO SCH ×2 (08:08→20:28)
[2019-07-12] MEDS: CALCIUM CARBONATE 500 MG TAB.CHEW PO SCH ×2 (08:08→11:44)
[2019-07-12] MEDS: LISINOPRIL 10 MG TABLET PO SCH ×2 (08:09→20:28)
[2019-07-12] MEDS: SODIUM CHLORIDE FLUSH 10ML SYR IVF SCH ×2 (08:09→20:28)
[2019-07-12] MEDS: PANTOPRAZOLE 40 MG IV IVPush SCH (08:09)
[2019-07-12] MEDS ORDERED: FLU VAC QS 19-20(4YR UP)CEL/PF 0.5 ML IM-VACC ONE (08:30)
[2019-07-12] MEDS: MEROPENEM 1 GM in SODIUM CHLORIDE 0.9% 100 ML IV SCH ×2 (09:08→20:28)
[2019-07-12] MEDS: LIDODERM 5% PATCH TD SCH (11:44)
[2019-07-12 13:56] VITALS: BP 131/80
[2019-07-12 19:23] VITALS: BP 133/69
[2019-07-12] MEDS: TRAZODONE 50MG TABLET PO PRN (20:28)
[2019-07-13 01:24] VITALS: BP 123/72
[2019-07-13] MEDS: INSULIN LISPRO 100 UNITS/ML, PEN SQ-INSULIN SCH ×3 (02:49→15:00)
[2019-07-13 05:36] LABS: ANION GAP 6 mmol/L (5-15); BASOPHILS # (AUTO) 0.03 x10^3/uL (0-0.1); BASOPHILS % (AUTO) 0 % (0-1); CALCIUM 7.9 mg/dL (8.5-10.1); CHLORIDE 107 mmol/L (98-107); EOSINOPHILS # (AUTO) 0.34 x10^3/uL (0-0.4); EOSINOPHILS % (AUTO) 5 % (1-7); LYMPHOCYTES # (AUTO) 1.26 x10^3/uL (1-3.4); LYMPHOCYTES % (AUTO) 17 % (22-44); MD NO; MEAN CORPUSCULAR HGB CONC 32.9 g/dL (32.4-35.8); MEAN CORPUSCULAR VOLUME 91.2 fL (80-100); MEAN PLATELET VOLUME 8.7 fL (7.4-10.4); MONOCYTES # (AUTO) 0.32 x10^3/uL (0.2-0.8); MONOCYTES % (AUTO) 4 % (2-9); NEUTROPHILS # (AUTO) 5.37 x10^3/uL (1.8-6.8); NEUTROPHILS % (AUTO) 73 % (42-75); PLATELET COUNT 330 x10^3/uL (130-400); RED CELL DISTRIBUTION WIDTH 16.5 % (9.6-15.2)
[2019-07-13 05:37] LABS: CREATININE 0.52 mg/dL (0.55-1.02)
[2019-07-13] MEDS: ENOXAPARIN 40 MG/0.4 ML SQ SCH (05:57)
[2019-07-13] MEDS: FLUCONAZOLE 200 MG/100 ML 100 ML IV SCH (06:25)
[2019-07-13] MEDS: SIMETHICONE 125 MG CHEW TAB PO SCH ×3 (06:28→16:36)
[2019-07-13 07:25] VITALS: BP 151/74
[2019-07-13] MEDS ORDERED: OXYC5SOL8 PO (08:46)
[2019-07-13] MEDS ORDERED: LOPE2CAP PO (08:46)
[2019-07-13] MEDS ORDERED: INSU100I11 SQ-INSULIN (08:46)
[2019-07-13] MEDS ORDERED: PANT40VI PO (08:46)
[2019-07-13] MEDS ORDERED: SIME125T PO (08:46)
[2019-07-13] MEDS ORDERED: LIDO700A20 TD (08:46)
[2019-07-13] MEDS ORDERED: ONDA4TAB7 PO (08:46)
[2019-07-13] MEDS ORDERED: ENOX40SY4 SQ (08:46)
[2019-07-13] MEDS ORDERED: TRAZ50TA66 PO (08:46)
[2019-07-13] MEDS: SODIUM CHLORIDE FLUSH 10ML SYR IVF SCH (09:11)
[2019-07-13] MEDS: PANTOPRAZOLE 40 MG IV IVPush SCH (09:11)
[2019-07-13] MEDS: LISINOPRIL 10 MG TABLET PO SCH (09:24)
[2019-07-13] MEDS: FERROUS SULFATE 325 MG TABLET PO SCH (09:24)
[2019-07-13] MEDS: CHOLECALCIFEROL 1,000 UNIT TABLET PO SCH (09:24)
[2019-07-13] MEDS: CALCIUM CARBONATE 500 MG TAB.CHEW PO SCH (09:24)
[2019-07-13] MEDS: LIDODERM 5% PATCH TD SCH (11:18)
[2019-07-13 13:20] VITALS: BP 150/79
[2019-07-13] MEDS: MEROPENEM 1 GM in SODIUM CHLORIDE 0.9% 100 ML IV SCH (13:21)
== END 2019-07-13 17:40 | DRG 853 ==
LOC: ED 09:11 → EDIP 11:42 → ICU 17:09 → 4NE 07-07 10:18
PROVIDERS: ADMIT Family Medicine; ATTEND Hospitalist
PROC: 02H633Z Insertion of Infusion Device into Right Atrium, Percutaneous Approach (ICD-10-PCS; 2019-07-04)
PROC: 0DU647Z Supplement Stomach with Autologous Tissue Substitute, Percutaneous Endoscopic Approach (ICD-10-PCS; 2019-07-04)
PROC: 03HY32Z Insertion of Monitoring Device into Upper Artery, Percutaneous Approach (ICD-10-PCS; 2019-07-04)
PROC: B548ZZA Ultrasonography of Superior Vena Cava, Guidance (ICD-10-PCS; 2019-07-04)
PROC: 5A1945Z Respiratory Ventilation, 24-96 Consecutive Hours (ICD-10-PCS; principal; 2019-07-04 15:00)
PROC: 02HV33Z Insertion of Infusion Device into Superior Vena Cava, Percutaneous Approach (ICD-10-PCS; 2019-07-13)
PROC: B548ZZA Ultrasonography of Superior Vena Cava, Guidance (ICD-10-PCS; 2019-07-13)
PROC: B5181ZA Fluoroscopy of Superior Vena Cava using Low Osmolar Contrast, Guidance (ICD-10-PCS; 2019-07-13)
DX: A41.9 Sepsis, unspecified organism (principal); K28.5 Chronic or unspecified gastrojejunal ulcer with perforation; N17.0 Acute kidney failure with tubular necrosis; K56.7 Ileus, unspecified; E46 Unspecified protein-calorie malnutrition; D50.9 Iron deficiency anemia, unspecified; E04.1 Nontoxic single thyroid nodule; E11.65 Type 2 diabetes mellitus with hyperglycemia; E55.9 Vitamin D deficiency, unspecified; I10 Essential (primary) hypertension; M06.9 Rheumatoid arthritis, unspecified; K27.9 Peptic ulcer, site unspecified, unspecified as acute or chronic, without hemorrhage or perforation; M81.0 Age-related osteoporosis without current pathological fracture; E21.1 Secondary hyperparathyroidism, not elsewhere classified; Z68.36 Body mass index [BMI] 36.0-36.9, adult; Z98.84 Bariatric surgery status; Z90.710 Acquired absence of both cervix and uterus; Z90.49 Acquired absence of other specified parts of digestive tract
CPT/HCPCS: 36415; 36573; 36600; 71045; 74018; 74177; 74241; 80048; 80053; 81001; 82306; 82330; 82533; 82803; 82962; 83605; 83690; 83735; 83970; 84100; 84478; 84484; 85018; 85025; 85610; 86850; 86900; 87040; 87070; 87081; 87086; 87147; 87205; 87324; 90674; 93005; 94002; 94003; 94150; 94640; 96374; 96375; G0378; J0171; J0610; J1170; J1650; J2185; J2250; J2405; J2704; J3010; J3480; J7613; J8610; P9047; Q9967; C1751; C9113; J0330; J1450; J1815; J2270; J2370; J3475; J3490; J7030; J7050; J7120

== ENCOUNTER → 2020-04-17 | Outpatient (CLI) | payer MEDICARE, OTHER ==
[~2020-04-17] MED LIST changes: +ASCO250T12 PO; -ASCO250T2 PO; -ECON15CR11 TP; +ECON15CR3 TP; +ENOX40SY4 SQ; +INSU100I11 SQ-INSULIN; +LIDO700A20 TD; +LOPE2CAP PO; +ONDA4TAB7 PO; +OXYC5SOL8 PO; -PANT40TA5 PO; +PANT40TA6 PO; +PANT40VI PO; +SIME125T PO; -SUCR1ORA11 PO; +SUCR1ORA14 PO; +TRAZ50TA66 PO
== END | disposition home or self-care (01) ==
LOC: CFH 07:56
PROVIDERS: ATTEND Nurse Practitioner Family
DX: Z12.31 Encounter for screening mammogram for malignant neoplasm of breast (principal)
CPT/HCPCS: 77063; 77067

== ENCOUNTER 2021-01-07 17:58 | Inpatient (IN) | payer MEDICARE, OTHER ==
[~2021-01-07] VITALS: Ht 160 cm; Wt 78.8 kg
[~2021-01-07 17:58] MED LIST changes: +BISA10SU54 PR; +DOCU100T3 PO; -FOLI0.4T2 PO; +FOLI0.4T5 PO; +HYDR-2214 PO; +LORA-59 PO; -LORA10TA62 PO
--- NOTE | 2021-01-07 18:46 | NUR ---
REPORT TO KAYLA BENNETT
--- NOTE | 2021-01-07 18:48 | NUR ---
REPORT FROM ARTIE ASSUMED CARE OF PT
--- NOTE | 2021-01-07 19:19 | NUR ---
AWAITING ERP TO SEE PT
[2021-01-07] MEDS ORDERED: CEFAZOLIN PMX 1GM/50ML 50 ML ONE (19:29)
[2021-01-07] MEDS ORDERED: CEFAZOLIN PMX 1GM/50ML 50 ML IV ONE (19:30)
[2021-01-07] MEDS ORDERED: SODIUM CHLORIDE FLUSH 10ML SYR IVF ONE (19:30)
[2021-01-07 19:39] LABS: HCT (SEDRATE) 33.2 % (34.6-47.8)
[2021-01-07 19:40] LABS: BASOPHILS % (AUTO) 1 % (0-1); EOSINOPHILS % (AUTO) 1 % (1-7); LYMPHOCYTES % (AUTO) 17 % (22-44); MEAN CORPUSCULAR HEMOGLOBIN 30.2 pg (27.0-34.8); MEAN CORPUSCULAR HGB CONC 33.6 g/dL (32.4-35.8); MEAN PLATELET VOLUME 8.3 fL (7.4-10.4); MONOCYTES % (AUTO) 8 % (2-9); NEUTROPHILS % (AUTO) 73 % (42-75); PLATELET COUNT 323 x10^3/uL (130-400)
[2021-01-07 19:52] LABS: ANION GAP 4 mmol/L (5-15); CALCIUM 8.7 mg/dL (8.5-10.1); CHLORIDE 105 mmol/L (98-107); CREATININE 0.73 mg/dL (0.55-1.02)
[2021-01-07 20:10] LABS: MD SCAN
[2021-01-07] MEDS ORDERED: POTASSIUM CHLORIDE 20 MEQ TAB.ER.PRT ONE (20:25)
[2021-01-07] MEDS ORDERED: POTASSIUM CHLORIDE 20 MEQ TAB.ER.PRT PO ONE (20:30)
[2021-01-07 20:48] VITALS: BP 147/78
[2021-01-07] MEDS ORDERED: POLYETHYLENE GLYCOL 17 GM PACKET PO PRN (21:30)
[2021-01-07] MEDS ORDERED: HYDROcodone/APAP 5/325 TABLET PO PRN (21:30)
[2021-01-07] MEDS: INSULIN LISPRO 100 UNITS/ML, PEN SQ-INSULIN SCH (21:30)
[2021-01-07] MEDS ORDERED: ACETAMINOPHEN 325 MG TABLET PO PRN (21:30)
[2021-01-07] MEDS ORDERED: MELATONIN 5 MG TABLET PO PRN (21:30)
[2021-01-07] MEDS ORDERED: BISACODYL 10 MG SUPP PR PRN (21:30)
[2021-01-07] MEDS ORDERED: ONDANSETRON 2MG/ML, 2ML IVPush PRN (21:30)
[2021-01-07] MEDS ORDERED: hydrALAzine 20 MG/ML, 1ML IVPush PRN (21:30)
[2021-01-07] MEDS ORDERED: TEMAZEPAM 15 MG CAPSULE PO PRN (21:30)
[2021-01-07] MEDS ORDERED: DOCUSATE 100 MG CAPSULE PO PRN (21:30)
[2021-01-07] MEDS ORDERED: LORazepam 2 MG/ML, 1ML IVPush PRN (21:30)
[2021-01-08 00:06] VITALS: BP 128/71
[2021-01-08] MEDS ORDERED: CEFAZOLIN 2,000 MG in SODIUM CHLORIDE 0.9% 50 ML IV SCH (03:30)
[2021-01-08] MEDS: SUCRALFATE 1 GM TABLET PO SCH ×4 (05:14→20:02)
[2021-01-08 05:29] LABS: BASOPHILS % (AUTO) 1 % (0-1); EOSINOPHILS % (AUTO) 3 % (1-7); LYMPHOCYTES % (AUTO) 18 % (22-44); MEAN CORPUSCULAR HEMOGLOBIN 29.8 pg (27.0-34.8); MEAN CORPUSCULAR HGB CONC 33.4 g/dL (32.4-35.8); MEAN PLATELET VOLUME 8.5 fL (7.4-10.4); MONOCYTES % (AUTO) 9 % (2-9); NEUTROPHILS % (AUTO) 68 % (42-75); PLATELET COUNT 291 x10^3/uL (130-400); RED CELL DISTRIBUTION WIDTH 19.8 % (9.6-15.2)
[2021-01-08 05:38] LABS: CALCIUM 8.1 mg/dL (8.5-10.1); CREATININE 0.63 mg/dL (0.55-1.02)
[2021-01-08 05:43] LABS: MD NO
[2021-01-08 05:57] LABS: ANION GAP 5 mmol/L (5-15); CHLORIDE 110 mmol/L (98-107)
[2021-01-08] MEDS ORDERED: VANCOMYCIN PER PHARMACY MC PRN (06:30)
[2021-01-08] MEDS: INSULIN LISPRO 100 UNITS/ML, PEN SQ-INSULIN SCH ×4 (07:00→20:01)
[2021-01-08 07:16] VITALS: BP 135/75
[2021-01-08] MEDS ORDERED: VANCOMYCIN 1,800 MG in SODIUM CHLORIDE 0.9% 250 ML IV ONE (07:30)
[2021-01-08] MEDS ORDERED: PHARMACOKINETIC MONITORING MC PRN (07:30)
[2021-01-08] MEDS: PANTOPRAZOLE 40MG TABLET PO SCH (08:20)
[2021-01-08] MEDS: FAMOTIDINE 20 MG TABLET PO SCH ×2 (08:20→20:02)
[2021-01-08] MEDS: ENOXAPARIN 40 MG/0.4 ML SQ SCH (08:21)
[2021-01-08] MEDS: MEROPENEM 1 GM in SODIUM CHLORIDE 0.9% 100 ML IV SCH ×3 (08:37→23:22)
[2021-01-08] MEDS ORDERED: METHOTREXATE 2.5 MG TABLET PO SCH (09:00)
[2021-01-08] MEDS ORDERED: DEXTROSE 50%, 50ML SYRINGE IVPush ONE (12:30)
[2021-01-08 13:30] VITALS: BP 110/68
[2021-01-08 19:05] VITALS: BP 106/66
[2021-01-09 00:36] VITALS: BP 116/69
[2021-01-09] MEDS: SUCRALFATE 1 GM TABLET PO SCH ×4 (04:57→19:47)
[2021-01-09] MEDS: INSULIN LISPRO 100 UNITS/ML, PEN SQ-INSULIN SCH ×4 (07:00→19:50)
[2021-01-09 07:18] VITALS: BP 125/73
[2021-01-09] MEDS: FAMOTIDINE 20 MG TABLET PO SCH (07:46)
[2021-01-09] MEDS: PANTOPRAZOLE 40MG TABLET PO SCH (07:46)
[2021-01-09] MEDS: MEROPENEM 1 GM in SODIUM CHLORIDE 0.9% 100 ML IV SCH ×2 (07:46→19:58)
[2021-01-09] MEDS: ENOXAPARIN 40 MG/0.4 ML SQ SCH (07:47)
[2021-01-09] MEDS ORDERED: VANCOMYCIN 1,400 MG in SODIUM CHLORIDE 0.9% 250 ML IV SCH (09:30)
[2021-01-09 14:28] VITALS: BP 126/77
[2021-01-09 19:45] VITALS: BP 129/72
[2021-01-10 00:09] VITALS: BP 119/71
[2021-01-10] MEDS: SUCRALFATE 1 GM TABLET PO SCH ×2 (05:26→10:48)
[2021-01-10] MEDS: INSULIN LISPRO 100 UNITS/ML, PEN SQ-INSULIN SCH ×2 (07:00→10:56)
[2021-01-10 07:05] VITALS: BP 143/77
[2021-01-10] MEDS: MEROPENEM 1 GM in SODIUM CHLORIDE 0.9% 100 ML IV SCH (07:18)
[2021-01-10] MEDS: ENOXAPARIN 40 MG/0.4 ML SQ SCH (07:24)
[2021-01-10] MEDS: PANTOPRAZOLE 40MG TABLET PO SCH (07:24)
[2021-01-10] MEDS ORDERED: LINEZOLID 600 MG TABLET PO SCH (09:00)
[2021-01-10] MEDS ORDERED: FAMOTIDINE 20 MG TABLET PO SCH (09:00)
[2021-01-10] MEDS ORDERED: LINE600T15 PO (11:43)
[2021-01-10 12:18] VITALS: BP 136/79
== END 2021-01-10 14:04 | disposition home health service (06) | DRG 603 ==
LOC: ED 18:50 → EDIP 20:08 → 3N 20:45
PROVIDERS: ADMIT Internal Medicine; ATTEND Hospitalist
DX: L03.116 Cellulitis of left lower limb (principal); D64.9 Anemia, unspecified; E11.649 Type 2 diabetes mellitus with hypoglycemia without coma; L03.115 Cellulitis of right lower limb; M06.9 Rheumatoid arthritis, unspecified; M81.0 Age-related osteoporosis without current pathological fracture; R13.10 Dysphagia, unspecified; M19.90 Unspecified osteoarthritis, unspecified site; I10 Essential (primary) hypertension; E87.6 Hypokalemia; R60.9 Edema, unspecified; Z79.899 Other long term (current) drug therapy; Z87.11 Personal history of peptic ulcer disease; Z98.84 Bariatric surgery status; Z90.710 Acquired absence of both cervix and uterus; Z90.49 Acquired absence of other specified parts of digestive tract; Z88.0 Allergy status to penicillin; Z88.5 Allergy status to narcotic agent; Z82.5 Family history of asthma and other chronic lower respiratory diseases; Z82.49 Family history of ischemic heart disease and other diseases of the circulatory system; Z83.3 Family history of diabetes mellitus
CPT/HCPCS: 36415; 74220; 80048; 82040; 82947; 82962; 83605; 83735; 84100; 84145; 85025; 85651; 86140; 87040; 87070; 87081; 87147; 87186; 87205; 96374; G0378; J0690; J1650; J2185; J3370; J8610; J7050

== ENCOUNTER 2021-02-13 19:28 | Emergency (ER) | payer MEDICARE, OTHER ==
[~2021-02-13] VITALS: Ht 160 cm; Wt 75.9 kg
[~2021-02-13 19:28] MED LIST changes: +LINE600T15 PO
--- NOTE | 2021-02-13 19:37 | NUR ---
BIB EMS FROM HOME FOR C/O R FLANK ABD PAIN AND LLQ ABD PAIN STARTED 5 DAYS AGO. DENIES HEMATURIA. STATES SHE HAD [facility] COME TO PT'S HOUSE AND FOUND PT TO HAVE K+ 2.2 AFTER BLOOD DRAW THERE. DENIES N/V/D. WAS GIVEN 4 MG ZOFRAN AND 50 MCG FENTANYL BREAKER MECHANIC. VS BREAKER MECHANIC HR 85, BP 122/70, 95% RA. PT RESTING ON GURNEY. NADN. MONITORS APPLIED. VSS. EKG COMPLETED. PT TEMP NOTED TO BE 99.3 NO WARM BLANKET PROVIDED. CALL LIGHT IN REACH.
[2021-02-13] MEDS ORDERED: SODIUM CHLORIDE FLUSH 10ML SYR IVF ONE (20:00)
[2021-02-13 20:16] LABS: MICROSCOPIC INDICATED
--- NOTE | 2021-02-13 20:50 | NUR ---
REPORT GIVEN TO KONSTANTIN JAIME RN.
--- NOTE | 2021-02-13 20:52 | NUR ---
SBAR REPORT RECEIVED FROM BLAKE. AT THIS TIME ALL TASK COMPLETE. NADN, CALL LIGHT W/IN REACH.
[2021-02-13 21:05] LABS: BASOPHILS % (AUTO) 1 % (0-1); EOSINOPHILS % (AUTO) 5 % (1-7); LYMPHOCYTES % (AUTO) 35 % (22-44); MEAN CORPUSCULAR HEMOGLOBIN 29.7 pg (27.0-34.8); MEAN CORPUSCULAR HGB CONC 33.3 g/dL (32.4-35.8); MEAN PLATELET VOLUME 8.4 fL (7.4-10.4); MONOCYTES % (AUTO) 8 % (2-9); NEUTROPHILS % (AUTO) 52 % (42-75); PLATELET COUNT 347 x10^3/uL (130-400); RED BLOOD COUNT 3.42 x10^6/uL (3.82-5.3); RED CELL DISTRIBUTION WIDTH 18.5 % (9.6-15.2)
[2021-02-13 21:17] LABS: ALBUMIN 2.4 g/dL (3.4-5.0); ANION GAP 2 mmol/L (5-15); CALCIUM 8.4 mg/dL (8.5-10.1); CHLORIDE 99 mmol/L (98-107)
[2021-02-13 21:23] LABS: ALANINE AMINOTRANSFERASE 14 U/L (12-78); ALKALINE PHOSPHATASE 103 U/L (45-117); BILIRUBIN,TOTAL 0.3 mg/dL (0.2-1.0); CREATININE 0.76 mg/dL (0.55-1.02); TOTAL PROTEIN 6.5 g/dL (6.4-8.2); TROPONIN I < 0.015 ng/mL (0.000-0.045)
--- NOTE | 2021-02-13 21:53 | NUR ---
PT TO CT
[2021-02-13] MEDS ORDERED: OMNIPAQUE 350 MG/ML, 100ML BOTTLE ONE (22:13)
--- NOTE | 2021-02-13 22:53 | NUR ---
PT SITTING IN GURNEY, REQUEST TO GO TO BATHROOM. PT STATES SHE USUALLY USES FWW AT HOME, SHE IS UNSTEADY ON HER FEET.
[2021-02-13] MEDS ORDERED: KETOROLAC 30 MG/1 ML ONE (23:07)
[2021-02-13] MEDS ORDERED: CYCLOBENZAPRINE 10 MG TABLET ONE (23:07)
[2021-02-13] MEDS ORDERED: HYDROcodone/APAP 5/325 TABLET ONE (23:08)
[2021-02-13] MEDS ORDERED: POTASSIUM CHLORIDE 20 MEQ TAB.ER.PRT ONE (23:08)
--- NOTE | 2021-02-13 23:20 | NUR ---
PT MEDICATED PER OCT, SHE DOES CARD VE A CODEINE ALLERGY WHICH SHE REPORTS IS EYE SWELLING, AWARE AND SAID TO PROCEED W/ ADMINISTRATION AND PT WAS OK WITH IT WELL. ROLANDON. CALL LIGHT W/IN REACH.
[2021-02-13] MEDS ORDERED: KETOROLAC 30 MG/1 ML IVPush ONE (23:30)
[2021-02-13] MEDS ORDERED: HYDROcodone/APAP 5/325 TABLET PO ONE (23:30)
[2021-02-13] MEDS ORDERED: POTASSIUM CHLORIDE 20 MEQ TAB.ER.PRT PO ONE (23:30)
[2021-02-13] MEDS ORDERED: CYCLOBENZAPRINE 10 MG TABLET PO ONE (23:30)
[2021-02-13 23:49] VITALS: BP 118/58
--- NOTE | 2021-02-13 23:50 | NUR ---
Patient given discharge instructions and they have confirmed that they understand the instructions. Patient ambulatory with steady gait. Addendum: 02/13/21 at 2350 by GILDARDO Patient given discharge instructions and they have confirmed that they understand the instructions. Patient ambulatory with fww, provided wheel chair out to [facility] where she is waiting for her ride.
== END 2021-02-14 00:09 | disposition home or self-care (01) ==
LOC: ED 23:03
DX: S39.012A Strain of muscle, fascia and tendon of lower back, initial encounter (principal); R10.32 Left lower quadrant pain; R94.31 Abnormal electrocardiogram [ECG] [EKG]; E11.9 Type 2 diabetes mellitus without complications; Z87.11 Personal history of peptic ulcer disease; X58.XXXA Exposure to other specified factors, initial encounter; Y93.89 Activity, other specified; Y92.89 Other specified places as the place of occurrence of the external cause; Y99.8 Other external cause status
CPT/HCPCS: 36415; 74177; 80053; 81001; 83690; 84484; 85025; 87086; 93005; 96374; 99285; J1885; Q9967

== ENCOUNTER 2021-02-15 13:00 | Emergency (ER) | payer MEDICARE, OTHER ==
[~2021-02-15] VITALS: Ht 160 cm; Wt 79.0 kg
--- NOTE | 2021-02-15 13:18 | NUR ---
PA BEDSIDE ASSUMING CARE OF PT- SENT TO HERE TO R/O OF BLOOD CLOT IN HER LEFT LEG.
--- NOTE | 2021-02-15 13:30 | NUR ---
PT TO RESTROOM AND BACK W/O INCIDENT. PT DRESSED IN HOSPITAL GOWN AND HOOKED TO MONITOR FOR BP AND PULSE OX. CALL LIGHT W/IN REACH.
[2021-02-15 14:13] VITALS: BP 130/63
--- NOTE | 2021-02-15 14:15 | NUR ---
RECEIVED UPDATE FROM ERICH RN, US COMPLETED. PT RESTING ON GURNEY W/ DAUGHTER BEDSIDE, GWYN, SCOTT. CALL LIGHT W/IN REACH.
--- NOTE | 2021-02-15 14:53 | NUR ---
Patient/Caregiver given discharge instructions and they have confirmed that they understand the instructions. Patient wheeled out by boring machine operator.
== END 2021-02-15 14:59 | disposition home or self-care (01) ==
LOC: ED 13:24
DX: B35.3 Tinea pedis (principal); L03.116 Cellulitis of left lower limb; E11.9 Type 2 diabetes mellitus without complications; Z87.11 Personal history of peptic ulcer disease
CPT/HCPCS: 99284